=== PATIENT | male | born 1950 | race Caucasian/White ===

== ENCOUNTER 2020-12-06 09:17 | Inpatient (IN) | payer MEDICARE, SELFPAY ==
[2020-12-06] VITALS (42 sets, daily range): BP systolic 104–169; BP diastolic 71–109; PULSE 78–154; RESP 16–31; TEMP 36.2–36.6; O2SAT 91–96; BMI 24.5
--- NOTE | 2020-12-06 | ECHO_ITS ---
Patient Info Name: Braden Liu Age: 70 years : 1950 Gender: Male Ht: 68 in Wt: 160 lbs BSA: 1.87 m2 HR: 89 bpm BP: 129 / 78 mmHg Heart Rhythm: Atrial Fibrillation Technical Quality: Good Exam Date: 12/06/2020 1:48 PM Exam Location: [facility] Pulmonary Exam Room: [facility] Patient Status: Inpatient Admit Date: 12/06/2020 Staff Ordering Physician: Mercedes Weaver PA-C Medical Auditor: Gabby Betancourt RDCS Attending Provider: Letty De La Rosa MD Referring Physician: Owen LOYA; Exam Type: CA echo doppler color flow Study Info Indications - new onset afib Complete two-dimensional, color flow and Doppler transthoracic echocardiogram is performed. Summary 1. Complete two-dimensional, color flow and Doppler transthoracic echocardiogram is performed. 2. Left ventricular chamber dimension is mildly enlarged. 3. Left ventricular systolic function is moderately reduced, estimated at 35-40%. 4. There is mild mitral valve regurgitation. 5. Mild biatrial dilation. Left Ventricle Left ventricular chamber dimension is mildly enlarged. Left ventricular systolic function is moderately reduced, estimated at 35-40%. The left ventricular diastolic function is indeterminate. Right Ventricle Right ventricular chamber dimension is normal. Left Atria Left atrial chamber dimension is mildly enlarged. Right Atria Right atrial chamber dimension is mildly enlarged. Aortic Valve The aortic valve is trileaflet. There is mild aortic valve sclerosis. Pulmonic Valve The pulmonic valve is normal. Mitral Valve The mitral valve has normal leaflets. There is mild mitral valve regurgitation. Tricuspid Valve The tricuspid valve leaflets are normal. Pericardium/Pleural The pericardium appears normal. Aorta The aortic root size at the sinus of Valsalva is normal. Left Ventricular Outflow Tract Name Value Normal LVOT 2D LVOT Diameter 2.0 cm LVOT Doppler LVOT Peak Gradient 5 mmHg LVOT Mean Gradient 3 mmHg LVOT VTI 20 cm LVOT VTI/AV VTI Ratio 0.7 LVOT Stroke Volume 63 ml LVOT CO 15.3 l/min LVOT CI 8.2 l/min/m2 Pulmonic Valve Name Value Normal PV Doppler PV Peak Gradient 2 mmHg Mitral Valve Name Value Normal MV Doppler MV Decel [place] 613 cm/s2 MV PHT 43 ms MV Area (PHT)
--- NOTE | ~2020-12-06 | XR_ITS ---
XR chest 1V portable DATE: 12/06/2020 09:43 INDICATION: Shortness of breath with exertion. Tachycardia. TECHNIQUE: Portable AP chest on 12/06/2020 at 0943 hours COMPARISON: None FINDINGS: Borderline heart size. Aortic tortuosity. Mild infiltrate or atelectasis at the lung bases, right greater than left. The lungs otherwise appear clear. No pleural effusion or pulmonary vascular congestion or pneumothorax. Diffuse osteopenia. Scoliosis and degenerative change of the thoracic spine. IMPRESSION: Borderline heart size Mild infiltrate or atelectasis at the lung bases, greater on the right Reviewed, dictated and finalized at location A.
--- NOTE | ~2020-12-06 | CT_ITS ---
EXAMINATION: CTA chest PE protocol DATE: 12/06/2020 10:37 INDICATION: Postoperative shortness of breath, tachycardia. TECHNIQUE: Computed tomography angiography (CTA) of the chest was performed with 100 mL Omnipaque-350 intravenous contrast timed to evaluate the pulmonary arteries. Coronal maximum intensity projection 3D-reconstructions were created by the technologist. Automated exposure control and iterative reconst ruction technique were employed. Exam dose: 386.12 mGy-cm total exam DLP. COMPARISON: None. FINDINGS: There is diagnostic contrast enhancement of the pulmonary arteries and no evidence of pulmo nary embolism. Normal heart size. No pericardial or pleural effusion. There is thoracic aortic and great vessel atherosclerotic calcification. No thoracic aortic aneurysm. Mild hilar and mediastinal lymph node prominence, likely reactive. Mild bilateral pleural effusions, right greater than left. There are moderate emphysematous changes of the lungs. There is bilateral lower lobe predominantly dependent infiltrate and/or atelectasis. Degenerative changes of the cervical, thoracic and lumbar spine. No suspicious osteolytic or osteobla stic lesions. IMPRESSION: No evidence of pulmonary embolism Bilateral lower lobe predominantly dependent infiltrate and/atelectasis Mild pleural effusions, right greater than left Emphysema Reviewed, dictated and finalized at Location [facility]. Reviewed, dictated and finalized at location A.
--- NOTE | 2020-12-06 09:21 | ECG_ITS ---
Measurements Intervals [place] Rate: 148 P: [place]: 0 QRS: 0 QRSD: 93 T: 68 QT: 288 QTc: 452 Interpretive Statements ATRIAL FIBRILLATION WITH RAPID VENTRICULAR RESPONSE INCOMPLETE RIGHT BUNDLE BRANCH BLOCK ABNORMAL ECG Electronically Signed On 12-06-2020 17:03:13 CDT by Charles Hill D.O.
[2020-12-06] MEDS: dilTIAZem HCl INJ 25 MG/5 ML VIAL 10 MG IV PUSH (09:37)
[2020-12-06 09:42] LABS: Basophils Percent Auto 0.3 % (0.2-1.2); Eosinophils Percent Auto 0.4 % (0-4.4); Hematocrit 42.6 % (42.0-52.0); Hemoglobin 14.4 g/dL (14.0-18.0); Immature Granulocyte Absolute 0.04 K/mm3 (0.00-0.031); Immature Granulocyte Percent A 0.4 % (0-0.5); Lymphocytes Absolute Auto 2.04 K/mm3 (0.9-3.2); Lymphocytes Percent Auto 19.5 % (18.3-44.2); Mean Corpuscular HGB Conc 33.8 g/dl (32-36); Mean Corpuscular Hemoglobin 33.1 pg (26-34); Mean Corpuscular Volume 97.9 fl (80-100); Mean Platelet Volume 10.2 fl (7.4-10.4); Monocytes Percent Auto 9.2 % (2.6-8.5); Neutrophils Absolute Auto 7.4 K/mm3 (1.3-6.7); Neutrophils Percent Auto 70.2 % (45.5-73.1); Platelet Count Result 204 k/mm3 (150-375); Red Blood Count 4.35 M/mm3 (4.6-6.20); Red Cell Distribution Width 12.9 % (11.5-14.5); White Blood Count 10.5 K/mm3 (4.5-10.0)
[2020-12-06 09:49] LABS: INR 1.1; Prothrombin Time 14.3 Seconds (11.1-14.7)
--- NOTE | 2020-12-06 09:49 | ED.SOB ---
HPI - SOB/Dyspnea General Chief Complaint: Shortness of Breath/Dyspnea Stated Complaint: cough/sob/elevated heart rate Time Seen by Provider: 12/06/20 09:21 Source: patient and RN notes reviewed Mode of arrival: ambulatory Limitations: no limitations History of Present Illness HPI Narrative: This is a 70 year old male smoker who presents for evaluation of shortness of breath. HE noticed he was having sob with exertion but denies any at rest. He noticed it particularly when he was cutting the grass. He denies palpitations, chest pain, nausea, vomiting, fever, abdominal pain, or melena. He denies history of an arrhythmia or heart disease. He does state he had a successful left hip replacement 2 months ago and he was anticoagulated after his procedure. He currently takes aspirin 81 mg. Related Data Home Medications Medication Instructions Recorded Confirmed aspirin 81 mg PO DAILY 12/06/20 12/06/20 Allergies Allergy/AdvReac Type Severity Reaction Status Date / Time Sulfa (Sulfonamide Allergy Unknown Verified 12/06/20 09:28 Antibiotics) Review of Systems Review of Systems: All systems reviewed & are unremarkable except as noted in HPI and below PMFSH Past Medical History Medical History (Updated 12/06/20 @ 17:54 by Nel Rossi MD) Osteoarthritis Patient denies medical problems Surgical History Surgical History (Updated 12/06/20 @ 13:35 by Mercedes Weaver PA-C) History of appendectomy History of bilateral hip replacements Family History Family History (Updated 12/06/20 @ 12:55 by Yadira Mansfield, JANAE) Mother Lung cancer Father Lung cancer Sibling Arthritis Mother Arthritis Social History Social History (Updated 12/06/20 @ 13:38 by Mercedes Weaver PA-C) Social History: Pt smokes about 1-2 cigarettes a day and is trying to cut down. He also smokes marijuana occasionally. He does not drugs such as cocaine. He drinks 3-4 beers a day. 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 If he is unable to make decisions for himself, he would like his , Allyn, to make decisions for him. Smoking packs per day: 1 Smoking cigarettes per day: 20.0 Years smoked: 40 Smoking pack-years: 40.00 Smoking status: Current every day smoker Tobacco type: cigarettes Smoking end date: 12/06/20 Alcohol intake: current Drinks per week: 21 Alcohol use details: 3 beers per day. States no history of alcohol withdrawal Substance use: former Substance use type: marijuana Gender identity (if verbalized by the patient): Male Spiritual care concerns: No Exam Const: General: no acute distress and alert Orientation/consciousness: patient oriented x3 Eyes: EOM: EOMs intact bilaterally Resp: Effort & Inspection: normal respiratory effort and no retractions Auscultation: wheezes (expiratory wheezing) Cardio: Rate: tachycardic Rhythm: abnormal rhythm Heart sounds: no murmurs GI: GI Palp: Yes Soft to palpation, No Tenderness to palpation present (GI) and No Guarding due to palpation present (GI) Auscultation: normal bowel sounds Neuro: General: patient oriented x3 and moves all extremities Extrem: General: no pedal edema Course Consultations Consultation #1: I Discussed with Dr. De La Rosa about patient with new onset afib. He accepts patient to service with cardiology consultation Date: 12/06/20 Time: 11:16 Consultation #2: I discussed case with Dr. Dasilva. He agrees to consult. Date: 12/06/20 Time: 11:23 Vital Signs Vital signs: Vital Signs Temperature 97.2 F L 12/06/20 09:22 Pulse Rate 149 H 12/06/20 09:22 Respiratory Rate 18 12/06/20 09:22 Blood Pressure 169/106 H 12/06/20 09:22 Pulse Oximetry 96 12/06/20 09:22 Temperature 97.4 F L 12/06/20 16:00 Pulse Rate 86 12/06/20 16:00 Respiratory Rate 18 12/06/20 16:00 Blood Pressure 104/71 12/06/20 16:00 Pulse Oximetry 91 12/06/20 1
[2020-12-06 09:50] LABS: Partial Thromboplastin Time 27.5 SECONDS (22.3-36.8)
[2020-12-06 09:55] LABS: Alanine Aminotransferase 21 U/L (4-50); Albumin Level 4.4 g/dL (3.5-5.1); Alkaline Phosphatase 92 U/L (38-126); Anion Gap 8 mmol/L (8-16); Aspartate Amino Transferase 26 U/L (17-59); Bilirubin,Total 0.9 mg/dL (0.2-1.3); Blood Urea Nitrogen 10 mg/dL (9-20); Calcium 9.4 mg/dL (8.4-10.2); Carbon Dioxide 27 mmol/L (22-30); Chloride 101 mmol/L (98-107); Estimated CRCL calculation 53 ml/min; Estimated Glomerular Filt Rate > 60; Glucose 116 mg/dL (75-110); Magnesium 1.8 mg/dL (1.6-2.3); Potassium 4.1 mmol/L (3.4-5.0); Sodium 136 mmol/L (137-145)
[2020-12-06] MEDS: dilTIAZem HCl INJ 25 MG/5 ML VIAL 20 MG IV PUSH (10:02)
[2020-12-06 10:07] LABS: NT Pro B Type Natriuretic Pept 4600 pg/mL (5-100); Troponin I < 0.012 ng/mL (0.000-0.034)
[2020-12-06] MEDS: ENOXAPARIN 80 MG/0.8 ML SYRINGE 72 MG SUB-Q (10:12)
--- NOTE | 2020-12-06 10:26 | PC.NURSE ---
Pt to CT.
--- NOTE | 2020-12-06 12:26 | PM.IMHP ---
H&P: HPI History of Present Illness Date/Time: 12/06/20 12:26 Chief Complaint: FRANZ Narrative: Pt is a 70 y/o male with no significant past medical history who presented to the ER for dyspnea on exertion and orthopnea. Pt states that in the last 3 days he started feeling 'weird' and was SOB whiling moving and laying flat. He usually sleeps on his stomach but he is unable to do so due to SOB in the last 3 days. He says the SOB with worse exertion and improves with sitting. He has not had any CP or palpitations. He has no hx of afib, heart failure, or cardiac disease. He has never had a stress test or cardiac cath. He drinks about 2 cups of coffee a ay and 3-4 beers a day. He has been cutting down on his smoking which is making him cough more. He has no symptoms of congestion, wheezing, or other upper respiratory infection. He has completed his COVID vaccine in sep. He denies leg swelling, fevers, chills, vomiting, dysuria, rashes, wounds, or fevers. He has never had a hx of stroke. he does admit to a decreased appetite. In october he had an elective left total hip which healed well. He sees his PCP routinely. Review of Systems Review of Systems: All systems reviewed & are unremarkable except as noted in HPI and below PMFSH Past Medical History Medical History (Updated 12/06/20 @ 13:35 by Mercedes Weaver PA-C) Osteoarthritis Patient denies medical problems Surgical History Surgical History (Updated 12/06/20 @ 13:35 by Mercedes Weaver PA-C) History of appendectomy History of bilateral hip replacements Family History Family History (Updated 12/06/20 @ 12:55 by Yadira Mansfield RN) Mother Lung cancer Father Lung cancer Sibling Arthritis Mother Arthritis Social History Social History (Updated 12/06/20 @ 13:38 by Mercedes Weaver PA-C) Social History: Pt smokes about 1-2 cigarettes a day and is trying to cut down. He also smokes marijuana occasionally. He does not drugs such as cocaine. He drinks 3-4 beers a day. 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 If he is unable to make decisions for himself, he would like his , Allyn, to make decisions for him. Smoking packs per day: 1 Smoking cigarettes per day: 20.0 Years smoked: 40 Smoking pack-years: 40.00 Smoking status: Current every day smoker Tobacco type: cigarettes Smoking end date: 12/06/20 Alcohol intake: current Drinks per week: 21 Alcohol use details: 3 beers per day. States no history of alcohol withdrawal Substance use: former Substance use type: marijuana Gender identity (if verbalized by the patient): Male Spiritual care concerns: No Meds Home Medications and Allergies Home Medications Medication Instructions Recorded Confirmed Type aspirin 81 mg PO DAILY 12/06/20 12/06/20 History Allergies Allergy/AdvReac Type Severity Reaction Status Date / Time Sulfa (Sulfonamide Allergy Unknown Verified 12/06/20 09:28 Antibiotics) Vital Signs Vital Signs - 24 hr 12/06/20 09:22 12/06/20 09:24 12/06/20 09:25 Temperature 97.2 F L Pulse Rate 149 H 142 H 147 H Respiratory Rate 18 31 H 25 H Blood Pressure 169/106 H Pulse Oximetry 96 95 96 12/06/20 09:30 12/06/20 09:31 12/06/20 09:45 Temperature Pulse Rate 154 H 139 H 130 H Respiratory Rate 21 H 24 H 18 Blood Pressure 154/101 H Pulse Oximetry 94 94 94 12/06/20 09:48 12/06/20 09:59 12/06/20 10:00 Temperature Pulse Rate 107 H 132 H Respiratory Rate 19 19 Blood Pressure 140/96 H Pulse Oximetry 96 93 94 12/06/20 10:01 12/06/20 10:02 12/06/20 10:15 Temperature Pulse Rate 123 H 100 116 H Respiratory Rate 20 20 20 Blood Pressure 148/109 H Pulse Oximetry 94 94 12/06/20 10:17 12/06/20 10:18 12/06/20 10:26 Temperature Pulse Rate 110 H 101 H 89 Respiratory Rate 20 20 Blood Pressure 114/93 H Pulse Oximetry 94 94 12/06/20 10:51 12/06/20 11:00
[2020-12-06 13:24] LABS: Troponin I < 0.012 ng/mL (0.000-0.034)
--- NOTE | 2020-12-06 13:33 | PC.NURSE ---
This patient, Braden Liu, was admitted to IMU Room 202-01. Patient/family oriented to hospital policies and general routines including ID bracelet, bed and alarms, visiting hours, pain management, procedures, bathroom and other care routines, personal items, smoking policy, room service/diet, and visiting hours. Information on how to activate the Rapid Response Team has been discussed. Patient/Family are encouraged to report perceived risks to care and to ask questions if they do not understand what they are told or what they should do.
[2020-12-06] MEDS: FUROSEMIDE INJ 40 MG/4 ML VIAL 20 MG IV PUSH (14:45)
[2020-12-06 16:32] LABS: Troponin I 0.014 ng/mL (0.000-0.034)
[2020-12-06] MEDS: ENOXAPARIN 80 MG/0.8 ML SYRINGE 75 MG SUB-Q (21:32)
[2020-12-06] MEDS: MELATONIN 5 MG TABLET PO (21:32)
[2020-12-06] MEDS: NICOTINE (*PBKC) 14 MG PATCH 1 PATCH TRANSDERM (21:57)
[2020-12-07] VITALS (18 sets, daily range): BP systolic 110–159; BP diastolic 66–89; PULSE 62–100; RESP 12–18; TEMP 36.2–36.9; O2SAT 91–100
[2020-12-07 04:42] LABS: Basophils Percent Auto 0.6 % (0.2-1.2); Eosinophils Percent Auto 0.6 % (0-4.4); Hematocrit 39.2 % (42.0-52.0); Hemoglobin 12.9 g/dL (14.0-18.0); Immature Granulocyte Absolute 0.02 K/mm3 (0.00-0.031); Immature Granulocyte Percent A 0.3 % (0-0.5); Lymphocytes Absolute Auto 1.31 K/mm3 (0.9-3.2); Lymphocytes Percent Auto 20.6 % (18.3-44.2); Mean Corpuscular HGB Conc 32.9 g/dl (32-36); Mean Corpuscular Hemoglobin 33.4 pg (26-34); Mean Corpuscular Volume 101.6 fl (80-100); Mean Platelet Volume 10.2 fl (7.4-10.4); Monocytes Absolute Auto 0.8 K/mm3 (0.1-0.6); Monocytes Percent Auto 12.2 % (2.6-8.5); Neutrophils Absolute Auto 4.2 K/mm3 (1.3-6.7); Neutrophils Percent Auto 65.7 % (45.5-73.1); Platelet Count Result 172 k/mm3 (150-375); Red Blood Count 3.86 M/mm3 (4.6-6.20); Red Cell Distribution Width 13.2 % (11.5-14.5); White Blood Count 6.4 K/mm3 (4.5-10.0)
[2020-12-07 04:58] LABS: Anion Gap 6 mmol/L (8-16); Blood Urea Nitrogen 13 mg/dL (9-20); Calcium 9.1 mg/dL (8.4-10.2); Carbon Dioxide 28 mmol/L (22-30); Chloride 103 mmol/L (98-107); Cholesterol 117 mg/dL (0-200); Estimated CRCL calculation 49 ml/min; Estimated Glomerular Filt Rate 60; Glucose 104 mg/dL (75-110); HDL Direct 25 mg/dL; Potassium 4.2 mmol/L (3.4-5.0); Sodium 137 mmol/L (137-145); Triglycerides 79 mg/dL (<150)
[2020-12-07 05:09] LABS: LDL Cholesterol Direct 82 mg/dL
[2020-12-07] MEDS: ASPIRIN 81 MG CHEWABLE TABLET PO (09:06)
[2020-12-07] MEDS: ENOXAPARIN 80 MG/0.8 ML SYRINGE 75 MG SUB-Q (09:07)
[2020-12-07] MEDS: FUROSEMIDE INJ 40 MG/4 ML VIAL 20 MG IV PUSH (09:07)
--- NOTE | 2020-12-07 14:12 | PM.CNCAR ---
Assessment and Plan Additional Plan 70-year-old man with chronic cigarette smoking presents with symptomatic atrial fibrillation. Sounds like symptoms began about 48 hours prior to presentation. He is now rate controlled and anticoagulated he appears to be hemodynamically stable. Echocardiogram does demonstrate some evidence of LV systolic dysfunction this could possibly certainly be due to the fact that the study is done during rapid atrial fibrillation. In any event I believe it is reasonable to attempt converting him to sinus rhythm since his atrial fib was not longstanding and he has fairly good story of symptoms fairly acute a short time before coming to the hospital. Along those lines I am going to transition him from IV diltiazem to oral sotalol at this time and transition his anticoagulant to up oral apixaban. He remembers being on apixaban following his hip replacement surgery and had no troubles the with the anticoagulant at that time. Hopefully sotalol will convert him to sinus rhythm if not I will attempt a electrical cardioversion while he is in the hospital. I do not anticipate discharging him in atrial fibrillation Yony Dasilva MD [facility] History of Present Illness History of Present Illness Consult date/time: 12/07/20 14:12 Consult reason: atrial fibrillation Reason For Visit: atrial fibrillation with RVR/ new onset Narrative: This is a pleasant 70-year-old man I am seeing at the request of the hospitalist for assistance with the management and evaluation of atrial fibrillation. The patient has no history of prior cardiac problems that he knows about prior to this. He came to the emergency room yesterday because for a couple of days he said he felt somewhat poorly. He was concerned about symptoms of both some shortness of breath as well as the sense of tachycardia and palpitations. This began he thinks about 2 days before he came to the hospital. In the emergency room it was recognized that he was tachycardic and electrocardiogram demonstrated atrial fib with rapid ventricular response. Other than this he was essentially asymptomatic and in no significant distress. His past medical history is primarily remarkable for longstanding cigarette smoking which he is trying to quit. He does not have any history of asthma or bronchospasm. He denies any symptoms of chest pain pressure or heaviness he has not been experiencing any orthopnea PND or edema. An echocardiogram was done upon admission yesterday that did demonstrate mild left ventricular systolic dysfunction and some atrial dilatation. In this setting he is being seen in consultation. In the emergency room he was of course started on intravenous diltiazem which is still running at 10 milligrams/hour. He was the anticoagulated with subcutaneous Lovenox 1 milligram/kilogram every 12 hours. 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 He has had bilateral hip replacement surgery done in the past no other major surgical operations. Review of Systems Constitutional: Constitutional: Reports no additional constitutional complaints Eyes: Eyes: Reports no additional eye complaints ENT: Reports system reviewed and no additional complaints, except as documented Cardiovascular: Cardiovascular: Reports palpitations Respiratory: Respiratory: Reports dyspnea Gastrointestinal: Gastrointestinal: Reports no additional gastrointestinal complaints Musculoskeletal: Musculoskeletal: Reports no additional musculoskeletal complaints Integumentary/Breasts: Skin/Breast: Reports system reviewed and no additional complaints, except as docu Neurologic: Reports system reviewed and no additional complaints, except as documented Endocrine: Endocrine: Reports no additional endocrine complaints Hematologic/Lymphatic: Hematologic/Lymphatic: Reports no additional hematologic/lymphatic complaints Allergic/Immunologic: Allergic/Immunologic: Reports n
--- NOTE | 2020-12-07 14:25 | PM.IMPN ---
Progress Note: A&P Assessment and Plan (1) Atrial fibrillation with RVR: Code(s): I48.91 - Unspecified atrial fibrillation Status: Acute Assessment and Plan: New onset afib noted on EKG -[id number] is 2, Eliquis was started -sotalol started by Cardiology -Pt started feeling unwell 3 days ago which may indicate this is when his afib started but he also had sx about a month ago which could have could be a factor as well. No afib in the past. Will monitor neurological symptoms while establishing rhythm control. (2) Acute systolic heart failure: Code(s): I50.21 - Acute systolic (congestive) heart failure Status: Acute Assessment and Plan: Echo reveals an EF 35-40% in a patient is a smoker -he is not having any chest pain -will give another dose of IV Lasix and see if that improves his shortness of breath. I will also add inhaler since he has COPD -consider adding PAUL/Arb -continue aspirin -consider outpatient stress testing/ischemic workup (3) Elevated brain natriuretic peptide (BNP) level: Code(s): R79.89 - Other specified abnormal findings of blood chemistry Status: Acute Assessment and Plan: BNP 4600 -CTA of the chest showed mild pleural effusions -EKG shows no ST abnormalities but does show new onset afib. -echo as above -trop negative x3. -He was given lasix today and yesterday for pleural effusion and SOB (4) Tobacco dependence: Code(s): F17.200 - Nicotine dependence, unspecified, uncomplicated Status: Acute Assessment and Plan: Pt understands he needs to quit smoking -nicotine patch ordered Time Spent With Patient Time with patient: 25 - 35 minutes Subjective Date/time seen: 12/07/20 14:25 Interval history: Pt is a 70-year-old male here for AFib RVR. Patient was seen today and states he is feeling better but he still feeling short of breath that has improved a bit. He has not had any chest pain, nausea, vomiting, fevers or chills, abdominal pain, diarrhea or constipation. Review of Systems Review of Systems: All systems reviewed & are unremarkable except as noted in HPI and below Exam Narrative: Exam Narrative: General:Well developed well nourished patient resting in bed in NAD HEENT: Normocephalic, atraumatic, PERRL, Sclerae anicteric, oral mucosa moist. Neck: Supple Resp: Mild crackles at the bases Heart: Irregularly irregular with no murmurs. tele showing rate controlled afib. Abd: Soft, nontender. No pain to palpation. Positive bowel sounds Skin: Warm and dry Extremities: No swelling, erythema or pain to palpation Neuro: Alert and Oriented x4 . CN 2-12 intact. No focal neurological deficits. Objective Data Vital Signs Vital Signs: Vital Signs - 24 hr 12/06/20 16:00 12/06/20 18:00 12/06/20 19:03 Temperature 97.4 F L Pulse Rate 88 84 93 Pulse Rate [Monitor] 86 Respiratory Rate 18 Blood Pressure 104/71 Pulse Oximetry 91 12/06/20 19:47 12/06/20 20:00 12/06/20 20:06 Temperature 97.8 F Pulse Rate 93 93 83 Pulse Rate [Monitor] 84 Respiratory Rate 16 16 Blood Pressure 106/71 106/71 106/71 Pulse Oximetry 94 94 12/06/20 22:00 12/07/20 00:00 12/07/20 02:00 Temperature 97.1 F L Pulse Rate 89 78 66 Pulse Rate [Monitor] 69 Respiratory Rate 16 Blood Pressure 110/71 Pulse Oximetry 91 12/07/20 04:00 12/07/20 05:09 12/07/20 05:57 Temperature 97.1 F L Pulse Rate 81 81 73 Pulse Rate [Monitor] 81 Respiratory Rate 16 Blood Pressure 124/66 124/66 Pulse Oximetry 94 12/07/20 08:00 12/07/20 10:00 12/07/20 12:00 Temperature 98.4 F 98 F Pulse Rate 88 73 79 Pulse Rate [Monitor] 62 79 Respiratory Rate 18 12 Blood Pressure 120/83 125/75 Pulse Oximetry 91 94 Intake/Output Intake/Output: Intake & Output 12/04/20 12/05/20 12/06/20 12/07/20 23:59 23:59 23:59 23:59 Intake Total 420 890 Output Total 850 300 Balance -430 590 Meds/Resul
[2020-12-07] MEDS: SOTALOL HCL 80 MG TABLET PO ×2 (14:49→20:45)
[2020-12-07] MEDS: NICOTINE (*PBKC) 14 MG PATCH 1 PATCH TRANSDERM (14:50)
--- NOTE | 2020-12-07 16:45 | ECG_ITS ---
Measurements Intervals [place] Rate: 79 P: [place]: 0 QRS: 149 QRSD: 99 T: 79 QT: 420 QTc: 482 Interpretive Statements ATRIAL FIBRILLATION INCOMPLETE RIGHT BUNDLE BRANCH BLOCK BASELINE ARTIFACT- I, II, III, AVR, AVL ABNORMAL ECG Electronically Signed On 12-07-2020 19:22:55 CDT by Charles Hill D.O.
[2020-12-07] MEDS: FUROSEMIDE INJ 40 MG/4 ML VIAL IV PUSH (18:33)
[2020-12-07] MEDS: THIAMINE HCL 100 MG TABLET PO (19:05)
[2020-12-07] MEDS: APIXABAN 5 MG TABLET PO (20:45)
[2020-12-07] MEDS: MELATONIN 5 MG TABLET PO (20:46)
[2020-12-08] VITALS (26 sets, daily range): BP systolic 115–152; BP diastolic 70–113; PULSE 62–114; RESP 14–25; TEMP 36.3–36.7; O2SAT 93–100
--- NOTE | 2020-12-08 01:19 | ECG_ITS ---
Measurements Intervals [place] Rate: 99 P: [place]: 0 QRS: -3 QRSD: 100 T: 35 QT: 384 QTc: 494 Interpretive Statements ATRIAL FIBRILLATION INCOMPLETE RIGHT BUNDLE BRANCH BLOCK DELAYED PRECORDIAL R/S TRANSITION ABNORMAL ECG Electronically Signed On 12-08-2020 9:12:25 CDT by Charles Hill D.O.
[2020-12-08] MEDS: FAMOTIDINE 20 MG/2 ML VIAL IV PUSH (02:04)
[2020-12-08 04:58] LABS: Hematocrit 40.4 % (42.0-52.0); Hemoglobin 13.2 g/dL (14.0-18.0); Mean Corpuscular HGB Conc 32.7 g/dl (32-36); Mean Corpuscular Hemoglobin 33.4 pg (26-34); Mean Corpuscular Volume 102.3 fl (80-100); Platelet Count Result 182 k/mm3 (150-375); Red Blood Count 3.95 M/mm3 (4.6-6.20); Red Cell Distribution Width 13.2 % (11.5-14.5); White Blood Count 6.7 K/mm3 (4.5-10.0)
[2020-12-08 05:59] LABS: Alanine Aminotransferase 16 U/L (4-50); Albumin Level 3.7 g/dL (3.5-5.1); Alkaline Phosphatase 72 U/L (38-126); Anion Gap 5 mmol/L (8-16); Aspartate Amino Transferase 21 U/L (17-59); Bilirubin,Total 0.8 mg/dL (0.2-1.3); Blood Urea Nitrogen 16 mg/dL (9-20); Calcium 9.2 mg/dL (8.4-10.2); Carbon Dioxide 30 mmol/L (22-30); Chloride 101 mmol/L (98-107); Estimated CRCL calculation 37 ml/min; Estimated Glomerular Filt Rate 43; Glucose 126 mg/dL (75-110); Magnesium 1.9 mg/dL (1.6-2.3); Potassium 3.8 mmol/L (3.4-5.0); Sodium 136 mmol/L (137-145)
[2020-12-08 07:56] LABS: Folic Acid > 20.0 ng/mL (2.76->20)
--- NOTE | 2020-12-08 08:16 | ECG_ITS ---
Measurements Intervals [place] Rate: 75 P: [place]: 0 QRS: -11 QRSD: 113 T: 48 QT: 455 QTc: 511 Interpretive Statements ATRIAL FIBRILLATION INCOMPLETE RIGHT BUNDLE BRANCH BLOCK PROLONGED QT INTERVAL ABNORMAL ECG Electronically Signed On 12-08-2020 10:31:08 CDT by Charles Hill D.O.
--- NOTE | 2020-12-08 08:51 | PM.PNCARD ---
Progress Note: A&P Additional Plan 70-year-old man with new onset atrial fibrillation. Heart rate this morning is well controlled but he is complaining of nausea which probably is related to an antiarrhythmic agent which was started over the weekend. I am going to stop the sotalol for that reason and proceed with an electrical cardioversion this morning. Alternative antiarrhythmic will be chosen after this. Continue anticoagulation with apixaban. Yony Dasilva MD [facility] Subjective Date/time seen: Date of service: 12/08/20 08:51 Interval history: Follow-up visit in this 70-year-old man with: Atrial fibrillation of new onset. He has been treated with sotalol and apixaban and is stable this morning but is complaining of nausea and dry heaves. Heart rate is well controlled patient's nausea is likely secondary to his antiarrhythmic. Discussed with the patient I will adjust his plan and consider/plan DC cardioversion this morning and discontinue sotalol. Will choose another antiarrhythmic based on results of his cardioversion. Exam Const: General: no acute distress and uncomfortable Other: No obvious distress reporting that he is nauseated as mentioned above HENMT: Mouth: Yes moist mucous membranes Eyes: Sclera: sclerae normal Pupils: Equal, round and reactive pupils present Neck: Neck: supple and no JVD Thyroid: thyroid normal Resp: Effort & Inspection: normal respiratory effort Auscultation: clear to auscultation bilaterally Cardio: Rhythm: abnormal rhythm irregularly irregular GI: GI Palp: Yes Soft to palpation Auscultation: normal bowel sounds Skin: General skin exam: normal color Neuro: Cognition (Neuro): normal cognition Extrem: General: normal to inspection Objective Data Vital Signs Vital Signs: Vital Signs - 24 hr 12/07/20 09:00 12/07/20 10:00 12/07/20 12:00 Temperature 36.6 C Pulse Rate 69 73 79 Pulse Rate [Monitor] 79 Respiratory Rate 16 12 Blood Pressure 125/75 Pulse Oximetry 94 94 12/07/20 14:00 12/07/20 14:49 12/07/20 15:13 Temperature Pulse Rate 72 85 96 Pulse Rate [Monitor] Respiratory Rate Blood Pressure Pulse Oximetry 12/07/20 16:00 12/07/20 18:00 12/07/20 20:00 Temperature 36.4 C 36.3 C L Pulse Rate 79 88 89 Pulse Rate [Monitor] 80 Respiratory Rate 12 16 Blood Pressure 122/81 159/68 H Pulse Oximetry 94 100 12/07/20 20:45 12/07/20 22:00 12/07/20 23:51 Temperature 36.3 C L Pulse Rate 80 100 85 Pulse Rate [Monitor] Respiratory Rate 16 Blood Pressure 126/89 Pulse Oximetry 95 12/08/20 00:00 12/08/20 02:00 12/08/20 04:00 Temperature 36.3 C L Pulse Rate 93 86 85 Pulse Rate [Monitor] Respiratory Rate 16 Blood Pressure 126/89 Pulse Oximetry 95 12/08/20 06:00 12/08/20 07:50 12/08/20 08:09 Temperature 36.5 C Pulse Rate 91 86 Pulse Rate [Monitor] 87 Respiratory Rate 18 Blood Pressure 140/101 H 136/95 H Pulse Oximetry 94 Intake/Output Intake/Output: Intake & Output 12/05/20 12/06/20 12/07/20 12/08/20 23:59 23:59 23:59 23:59 Intake Total 420 1650 550 Output Total 850 500 600 Balance -430 1150 -50 Meds/Results Medications: Active Medications Generic Name Dose Route Start Last Admin Trade Name Freq PRN Reason Stop Dose Admin Apixaban 5 mg 12/07/20 21:00 12/07/20 20:45 Apixaban 5 Mg Tablet PO 5 mg Q12HR ELADIO Administration Aspirin 81 mg 12/07/20 09:00 12/07/20 09:06 Aspirin 81 Mg Chewable Tablet PO 01/06/21 09:01 81 mg DAILY ELADIO Administration Folic Acid 1 mg 12/08/20 09:00 Folic Acid 1 Mg Tablet PO DAILY ELADIO Levalbuterol HCl 2 puff 12/07/20 08:29 Levalbuterol Hfa (*Sp) 15 Gm Inhaler INHALATION Q6HRT PRN Shortness Of Breath Melatonin 5 mg 12/07/20 21:00 12/07/20 20:46 Melatonin 5 Mg Tablet PO 5 mg HS ELADIO Administration Prochlorperazine Edisylate 10 mg 12/08/20 08:30 Prochlorperazine Edisylate 10 Mg/
[2020-12-08] MEDS: APIXABAN 5 MG TABLET PO ×2 (09:36→20:05)
--- NOTE | 2020-12-08 10:49 | PC.NURSE ---
Patient to chest pain center @10[address] Dasilva. Patient has RNs at bedside.
--- NOTE | 2020-12-08 11:06 | WPDMODSED ---
Moderate Sedation Note-Pt Data Patient Data Diagnosis: Atrial fibrillation of new onset Present Complaint: palpitations and dyspnea Procedure to be performed/Plan: DC cardioversion Allergies Allergy/AdvReac Type Severity Reaction Status Date / Time Sulfa (Sulfonamide Allergy Unknown Verified 12/06/20 09:28 Antibiotics) Home Medications Medication Instructions Recorded Confirmed Type aspirin 81 mg PO DAILY 12/06/20 12/06/20 History Current Medications: Active Medications Apixaban (Apixaban 5 Mg Tablet) 5 mg PO Q12HR [facility] Last Admin: 12/08/20 09:36 Dose: 5 mg Documented by: Aspirin (Aspirin 81 Mg Chewable Tablet) 81 mg PO DAILY [facility] Stop: 01/06/21 09:01 Last Admin: 12/07/20 09:06 Dose: 81 mg Documented by: Folic Acid (Folic Acid 1 Mg Tablet) 1 mg PO DAILY [facility] Levalbuterol HCl (Levalbuterol Hfa (*Sp) 15 Gm Inhaler) 2 puff INHALATION Q6HRT PRN PRN Reason: Shortness Of Breath Melatonin (Melatonin 5 Mg Tablet) 5 mg PO HS [facility] Last Admin: 12/07/20 20:46 Dose: 5 mg Documented by: Prochlorperazine Edisylate (Prochlorperazine Edisylate 10 Mg/2 Ml Vial) 10 mg IV PUSH Q6H PRN PRN Reason: Nausea And Vomiting Thiamine HCl (Thiamine Hcl 100 Mg Tablet) 100 mg PO QAM [facility] Last Admin: 12/07/20 19:05 Dose: 100 mg Documented by: Sedation/Anesthesia: No previous sedation/anesthesia problems (including family history). [facility] Past Medical History Medical History (Updated 12/07/20 @ 14:25 by Mercedes Weaver PA-C) Osteoarthritis Patient denies medical problems Surgical History Surgical History (Updated 12/06/20 @ 13:35 by Mercedes Weaver PA-C) History of appendectomy History of bilateral hip replacements Family History Family History (Updated 12/06/20 @ 12:55 by Yadira Mansfield RN) Mother Lung cancer Father Lung cancer Sibling Arthritis Mother Arthritis Social History Social History (Updated 12/06/20 @ 13:38 by Mercedes Weaver PA-C) Social History: Pt smokes about 1-2 cigarettes a day and is trying to cut down. He also smokes marijuana occasionally. He does not drugs such as cocaine. He drinks 3-4 beers a day. 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 If he is unable to make decisions for himself, he would like his , Allyn, to make decisions for him. Smoking packs per day: 1 Smoking cigarettes per day: 20.0 Years smoked: 40 Smoking pack-years: 40.00 Smoking status: Current every day smoker Tobacco type: cigarettes Smoking end date: 12/06/20 Alcohol intake: current Drinks per week: 21 Alcohol use details: 3 beers per day. States no history of alcohol withdrawal Substance use: former Substance use type: marijuana Gender identity (if verbalized by the patient): Male Spiritual care concerns: No Mod Sed Physical Exam Physical Exam Pre Procedural Exam: Normal: Appearance, Nose, Neck, Throat, Airway, Lungs, Heart Size, Heart Rate, Neuro Exam and Extremities and Variation: Heart Rhythm ( irregularly irregular) Hours since solid foods: 12 Hours since liquid intake: 12 Internal Medicine - PN: Myrtle Davenport Vital Signs Vital Signs: Vital Signs - 24 hr 12/07/20 12:00 12/07/20 14:00 12/07/20 14:49 Temperature 36.6 C Pulse Rate 79 72 85 Pulse Rate [Monitor] 79 Respiratory Rate 12 Blood Pressure 125/75 Pulse Oximetry 94 12/07/20 15:13 12/07/20 16:00 12/07/20 18:00 Temperature 36.4 C Pulse Rate 96 79 88 Pulse Rate [Monitor] 80 Respiratory Rate 12 Blood Pressure 122/81 Pulse Oximetry 94 12/07/20 20:00 12/07/20 20:45 12/07/20 22:00 Temperature 36.3 C L Pulse Rate 89 80 100 Pulse Rate [Monitor] Respiratory Rate 16 Blood Pressure 159/68 H Pulse Oximetry 100 12/07/20 23:51 12/08/20 00:00 12/08/20 02:00 Temperature 36.3 C L Pulse Rate 85 93 86 Pulse Rate [Monitor] Respiratory Rate 16 Blood Pressure 126/89 Pulse Oximetry 95 12/08/20
--- NOTE | 2020-12-08 11:13 | ECG_ITS ---
Measurements Intervals [place] Rate: 105 P: [place]: 0 QRS: 0 QRSD: 98 T: 32 QT: 398 QTc: 526 Interpretive Statements ATRIAL FIBRILLATION WITH RAPID VENTRICULAR RESPONSE ABNORMAL ECG Electronically Signed On 12-08-2020 14:29:25 CDT by Charles Hill D.O.
--- NOTE | 2020-12-08 11:14 | P.PCNCC_ITS ---
Cardiac Cath Procedure Note Date of procedure:: 12/08/20 Performing physician:: Yony Dasilva MD Indication:: New onset/persistent atrial fibrillation Brief clinical history:: This is a 70-year-old man who presented over the weekend with atrial fibrillation which by history appears to be of new onset. He has been treated with sotalol and apixaban. He is experiencing some nausea but otherwise appears to be stable. Attempt at restoring sinus rhythm electrically is now being attempted Procedure Procedure performed:: DC cardioversion Sedation/Medication given:: Propofol in aliquots total dosage of 70 mg Estimated blood loss:: No blood loss Procedure note:: Patient was brought to the cardiac catheterization lab holding area in the postabsorptive state. He was in the supine position with defibrillator patches placed in the AP position. He was then sedated with propofol. A total dosage of 70 mg was given in aliquots which provided excellent procedural sedation. He was counter shocked with 200 joules in a synchronized fashion x1 which restored sinus rhythm. Findings:: As above Conclusion:: Successful uncomplicated DC cardioversion of atrial fib restoring sinus rhythm using 200 joules x1 shock. Yony Dasilva MD [facility]
--- NOTE | 2020-12-08 11:45 | PM.IMPN ---
Progress Note: A&P Assessment and Plan (1) Atrial fibrillation with RVR: Code(s): I48.91 - Unspecified atrial fibrillation Status: Acute Assessment and Plan: New onset afib noted on EKG -[id number] is 2, Eliquis was started -patient was cardioverted but went right back and atrial fibrillation -plan for metoprolol and flecainide according to Cardiology tonight -continue to monitor in the IMU (2) Acute systolic heart failure: Code(s): I50.21 - Acute systolic (congestive) heart failure Status: Acute Assessment and Plan: Echo reveals an EF 35-40% in a patient is a smoker -he is not having any chest pain -he was given IV Lasix yesterday morning and again in the afternoon which improved his orthopnea and dyspnea on exertion but now his creatinine is elevated. -consider adding PAUL/Arb -continue aspirin -consider outpatient stress testing/ischemic workup -will hold off on further Lasix at this time. Monitor symptoms. Patient be a candidate for p.r.n. Lasix outpatient if needed (3) Elevated brain natriuretic peptide (BNP) level: Code(s): R79.89 - Other specified abnormal findings of blood chemistry Status: Acute Assessment and Plan: BNP 4600 -CTA of the chest showed mild pleural effusions -EKG shows no ST abnormalities but does show new onset afib. -echo as above -trop negative x3. (4) Tobacco dependence: Code(s): F17.200 - Nicotine dependence, unspecified, uncomplicated Status: Acute Assessment and Plan: Pt understands he needs to quit smoking -nicotine patch ordered (5) Elevated serum creatinine: Code(s): R79.89 - Other specified abnormal findings of blood chemistry Status: Acute Assessment and Plan: Cr increased to 1.6 today after 60mg of IV lasix total yesterday -monitor with daily labs -hold off on lasix for today as the pts symptoms are better. Additional Plan Patient is being admitted under observation status and supervising physician is Dr. Blaise Bernabe Time Spent With Patient Time with patient: 25 - 35 minutes Subjective Date/time seen: 12/08/20 11:45 Interval history: Pt is a 70-year-old male here for new onset AFib. Patient was seen today prior to his procedure and states he is doing okay. He had significant nausea overnight which prevented him from sleeping. He thinks the sotalol may have caused it since he has taken Eliquis in the past and did not have the issue with that. He has not had any palpitations, chest pain or weakness/numbness. He said his dyspnea on exertion and orthopnea has resolved and he is feeling much better than he has in a while. I spoke with him about the plan of care. He denies diarrhea, constipation, vomiting, fevers or chills. Review of Systems Review of Systems: All systems reviewed & are unremarkable except as noted in HPI and below Exam Narrative: Exam Narrative: General:Well developed well nourished patient resting in bed in NAD HEENT: Normocephalic, atraumatic, PERRL, Sclerae anicteric, oral mucosa moist. Neck: Supple Resp: Mild crackles at the bases Heart: Irregularly irregular with no murmurs. tele showing rate controlled afib. Abd: Soft, nontender. No pain to palpation. Positive bowel sounds Skin: Warm and dry Extremities: No swelling, erythema or pain to palpation Neuro: Alert and Oriented x4 . CN 2-12 intact. No focal neurological deficits. Objective Data Vital Signs Vital Signs: Vital Signs - 24 hr 12/07/20 12:00 12/07/20 14:00 12/07/20 14:49 Temperature 98 F Pulse Rate 79 72 85 Pulse Rate [Monitor] 79 Respiratory Rate 12 Blood Pressure 125/75 Pulse Oximetry 94 12/07/20 15:13 12/07/20 16:00 12/07/20 18:00 Temperature 97.6 F Pulse Rate 96 79 88 Pulse Rate [Monitor] 80 Respiratory Rate 12 Blood Pressure 122/81 Pulse Oximetry 94 12/07/20 20:00 12/07/20 20:45 12/07/20 22:00 Temperature 97.4 F L
[2020-12-08] MEDS: FLECAINIDE ACETATE 100 MG TABLET PO ×2 (12:15→20:05)
[2020-12-08] MEDS: FOLIC ACID 1 MG TABLET PO (12:15)
[2020-12-08] MEDS: THIAMINE HCL 100 MG TABLET PO (12:15)
[2020-12-08] MEDS: METOPROLOL TARTRATE 50 MG TAB PO ×2 (12:16→20:05)
[2020-12-08] MEDS: ASPIRIN 81 MG CHEWABLE TABLET PO (13:42)
[2020-12-08] MEDS: ALPRAZolam (*CRX) 0.125 MG TABLET PO (20:04)
[2020-12-08] MEDS: MELATONIN 5 MG TABLET PO (20:05)
[2020-12-09] VITALS (18 sets, daily range): BP systolic 112–144; BP diastolic 72–98; PULSE 57–88; RESP 12–18; TEMP 36.1–36.6; O2SAT 94–98
[2020-12-09 06:31] LABS: Hematocrit 41.8 % (42.0-52.0); Hemoglobin 13.8 g/dL (14.0-18.0); Mean Corpuscular Hemoglobin 33.8 pg (26-34); Mean Corpuscular Volume 102.5 fl (80-100); Mean Platelet Volume 10.1 fl (7.4-10.4); Platelet Count Result 179 k/mm3 (150-375); Red Blood Count 4.08 M/mm3 (4.6-6.20); Red Cell Distribution Width 13.2 % (11.5-14.5); White Blood Count 7.4 K/mm3 (4.5-10.0)
[2020-12-09 06:32] LABS: Alanine Aminotransferase 13 U/L (4-50); Albumin Level 3.5 g/dL (3.5-5.1); Alkaline Phosphatase 60 U/L (38-126); Anion Gap 4 mmol/L (8-16); Aspartate Amino Transferase 21 U/L (17-59); Bilirubin,Total 0.8 mg/dL (0.2-1.3); Blood Urea Nitrogen 19 mg/dL (9-20); Calcium 8.9 mg/dL (8.4-10.2); Carbon Dioxide 24 mmol/L (22-30); Chloride 103 mmol/L (98-107); Estimated CRCL calculation 42 ml/min; Estimated Glomerular Filt Rate 50; Glucose 105 mg/dL (75-110); Magnesium 1.9 mg/dL (1.6-2.3); Potassium 4.1 mmol/L (3.4-5.0); Sodium 131 mmol/L (137-145)
--- NOTE | 2020-12-09 08:04 | ECG_ITS ---
Measurements Intervals [place] Rate: 65 P: 50 OR: 193 QRS: -7 QRSD: 110 T: 29 QT: 478 QTc: 501 Interpretive Statements SINUS RHYTHM ATRIAL PREMATURE COMPLEX T WAVE ABNORMALITY IN ANTERIOR LEADS- CONSIDER ISCHEMIA BASELINE ARTIFACT- I, III, AVR, AVL, AVF ABNORMAL ECG Electronically Signed On 12-09-2020 9:47:19 CDT by Charles Hill D.O.
[2020-12-09] MEDS: FLECAINIDE ACETATE 100 MG TABLET PO (08:25)
[2020-12-09] MEDS: THIAMINE HCL 100 MG TABLET PO (08:25)
[2020-12-09] MEDS: FOLIC ACID 1 MG TABLET PO (08:26)
[2020-12-09] MEDS: APIXABAN 5 MG TABLET PO ×2 (08:26→21:19)
[2020-12-09] MEDS: METOPROLOL TARTRATE 50 MG TAB PO ×2 (08:26→20:28)
--- NOTE | 2020-12-09 09:15 | PM.DS ---
DS: Discharge Diagnosis Discharge Diagnosis (1) Atrial fibrillation with RVR: Code(s): I48.91 - Unspecified atrial fibrillation Status: Acute (2) Acute systolic heart failure: Code(s): I50.21 - Acute systolic (congestive) heart failure Status: Acute (3) Tobacco dependence: Code(s): F17.200 - Nicotine dependence, unspecified, uncomplicated Status: Acute (4) Elevated serum creatinine: Code(s): R79.89 - Other specified abnormal findings of blood chemistry Status: Acute DS: Summary Status at Discharge Functional status at discharge: independent ambulation Time Spent with Patient Time attestation: Total time spent providing and/or coordinating discharge services:36 min Time spent: Greater than 30 minutes Exam Narrative: Exam Narrative: . DS: Data Data Completed and Pending Labs on day of discharge: Labs from last 24 hours 12/09/20 12/09/20 06:09 06:09 WBC 7.4 RBC 4.08 L Hgb 13.8 L Hct 41.8 L MCV 102.5 H MCH 33.8 MCHC 33.0 RDW 13.2 Plt Count 179 MPV 10.1 Sodium 131 L Potassium 4.1 Chloride 103 Carbon Dioxide 24 Anion Gap 4 L BUN 19 Creatinine 1.40 H Estim Creat Clear Calc 42 Estimated GFR 50 L Glucose 105 Calcium 8.9 Magnesium 1.9 Total Bilirubin 0.8 AST 21 ALT 13 Alkaline Phosphatase 60 Total Protein 6.0 L Albumin 3.5 Discharge Plan Discharge Attending physician on discharge: Monty Bernabe Consulting providers: Yony Dasilva Discharging Clinician: Mercedes Weaver Patient Disposition: Home, Self-Care Activity: as tolerated Diet: heart healthy Discharge Instructions: -please note your medications have changed -You are now on a blood thinner . This will make you bleed easier. If you have a wound or scrape yourself, you will need to hold pressure for a longer period of time. If you fall or hit your head, you will need to seek medical attention right away. Stop and call your doctor if you start to have dark tary stools as this can indicate internal bleeding -weigh yourself daily, if you gain more than 5 lb in 1 week or start to notice worsening swelling in your lower extremities, call your primary care physician to see if your medications need to be temporarily adjusted to prevent future hospitalizations. -follow-up with your primary care physician in 1-2 weeks about this stay -follow-up with cardiology as recommended. You have been given their number. -If you have stroke like symptoms which include: numbness/tingling to any part of the body, asymmetrical features, problems with speech, problems with word-finding, problems with balance or walking, or worsened confusion call 911 -worrisome signs and symptoms come back to emergency room for: Chest pain, shortness of breath, progressive significant weakness, symptoms above, fevers 100.4 or greater, or any other worrisome symptom. Patient Instructions: Flecainide (By mouth), Apixaban (By mouth), How to Stop Smoking (GEN), Cigarette Smoking and Your Health (GEN) Stand Alone Forms: General Discharge Information Follow-up/Referrals: Yony Dasilva MD [Physician] - Call for Appointment Oli,Kelly Gutierrez MD [Primary Care Provider] - 1 Week Discharge Medications: New Eliquis 5 mg Tablet 5 mg PO Q12HR Qty: 60 RF: 0 folic acid 1 mg Tablet 1 mg PO DAILY Qty: 30 RF: 0 thiamine HCl (vitamin B1) [Vitamin B-1] 100 mg Tablet 100 mg PO QAM Qty: 30 RF: 0 Continued aspirin 81 mg Tablet 81 mg PO DAILY RF: 0 Date of admission: 12/07/20 14:28 Primary Care Provider: OliKelly Admitting Provider: Letty De La Rosa Attending physician on admission: Mercedes Weaver Condition: Stable Quality VTE Prophylaxis VTE prophylaxis: mechanical ordered
--- NOTE | 2020-12-09 10:18 | PM.PNCARD ---
Progress Note: A&P Assessment and Plan (1) Atrial fibrillation with RVR: Code(s): I48.91 - Unspecified atrial fibrillation Status: Acute Assessment and Plan: Admitted with new onset AFib RVR. Failed antiarrhythmic therapy with sotalol. Has converted to sinus rhythm on moderate dose flecainide. Unfortunately his EKG shows QT prolongation this morning. (2) QT prolongation: Code(s): R94.31 - Abnormal electrocardiogram [ECG] [EKG] Status: Acute Assessment and Plan: Patient's EKG this morning showed QT prolongation, QTC of 501 milliseconds as well as some T-wave changes anteriorly. May have had some QT prolongation on sotalol as well, though a little difficult to measure 2nd a fib at that time. I have explained to the patient that this can be a proarrhythmic side effect of flecainide in some individuals and predispose him to a different type of arrhythmia, which can very serious and can lead to cardiac arrest. I am very uneasy about discharging this patient today since he has had recently both sotalol and now moderate dose flecainide, has structural heart disease (a risk factor for proarrhythmic effect), and as mentioned the QT prolongation. We do not know if he has any ischemia/CAD, although he denies any signs or symptoms of CAD. I recommended we discontinue flecainide now. I recommended patient stay for another night to make sure he is safe. Patient is very disappointed as he wanted to go home today, ?Oh, come on! This can go on for ever!? and has expressed an interest in leaving today. I have asked him to think it over and we can touch base later today. (3) Cardiomyopathy: Code(s): I42.9 - Cardiomyopathy, unspecified Status: Acute Assessment and Plan: Rales on exam, appears to be in acute systolic CHF on admission, mild pleural effusions, and EF 35-40%. Hopefully just a rate related cardiomyopathy that will improve with time. On metoprolol, will add lisinopril 10 mg daily. Still in some CHF; will give furosemide 40mg po x 1. No need for ASA; will DC it. (4) Sinus pause: Code(s): I45.5 - Other specified heart block Status: Acute Assessment and Plan: Short sinus pauses noted, the longest being for 2.6 seconds which occurred around 8:00 a.m. although most were occurring through the night. Patient says he does snore but has never been diagnosed to have sleep apnea. May need a sleep study for further evaluation as sleep apnea will have an effect on atrial fibrillation recurrence. (5) CKD (chronic kidney disease): Code(s): N18.9 - Chronic kidney disease, unspecified Status: Acute Assessment and Plan: CKD noted; follow renal fxn while on lisinopril. (6) Tobacco dependence: Code(s): F17.200 - Nicotine dependence, unspecified, uncomplicated Status: Acute Assessment and Plan: Trying to quit Subjective Date/time seen: 12/09/20 10:18 Interval history: Follow-up for paroxysmal atrial fibrillation, new onset, and cardiomyopathy. Echo EF 35-40%. Started on anticoagulation and sotalol and underwent cardioversion on 12/08/2020. However he did not maintain sinus rhythm for long. Sotalol was changed to flecainide 12/08/2020. Date of service 12/09/2020: Started on flecainide 100 mg b.i.d. yesterday morning and has converted to sinus rhythm overnight. Some pauses were noted particularly was sleep but the longest was 2.6 seconds around 8:00 a.m.. Patient says he feels great, ?100%.? Denies any shortness of breath, chest pain, dizziness. Denies any history of sleep apnea but says he does snore. 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
--- NOTE | 2020-12-09 10:54 | PM.IMPN ---
Progress Note: A&P Assessment and Plan (1) Atrial fibrillation with RVR: Code(s): I48.91 - Unspecified atrial fibrillation Status: Acute Assessment and Plan: New onset afib noted on EKG on admission and EKG this morning showing NSR -Ekg showing prolonged QT on today's EKG, flecainide discontinued by cardiology -Continue with metoprolol -[id number] is 2, Eliquis continued -patient was cardioverted 12/08/20 but went right back and atrial fibrillation -continue to monitor in the IMU (2) Acute systolic heart failure: Code(s): I50.21 - Acute systolic (congestive) heart failure Status: Acute Assessment and Plan: Echo reveals an EF 35-40% in a patient is a smoker -he is not having any chest pain -Pt has been receiving intermittent lasix which is improving his symptoms. -lisinopril was started today, agree with that. -consider outpatient stress testing/ischemic workup, defer to cardiology (3) Tobacco dependence: Code(s): F17.200 - Nicotine dependence, unspecified, uncomplicated Status: Acute Assessment and Plan: Pt understands he needs to quit smoking (4) Elevated serum creatinine: Code(s): R79.89 - Other specified abnormal findings of blood chemistry Status: Acute Assessment and Plan: Cr increased to 1.4 today, will continue to monitor. (5) QT prolongation: Code(s): R94.31 - Abnormal electrocardiogram [ECG] [EKG] Status: Acute Assessment and Plan: Worsening with antiarrhythmics -flecainide held -continue to monitor on telemetry, re-check EKG in the AM -await cardiology's recommendations Time Spent With Patient Time with patient: 25 - 35 minutes Subjective Date/time seen: 12/09/20 10:54 Interval history: Pt is a 70 y/o male here for afib rvr with new systolic HF. Pt was seen today and is doing better. he has no further SOB or orthopnea. He continues to deny CP. He is eating and drinking well with no nausea, vomiting, diarrhea or constipation. He is eating well without issue. Review of Systems Review of Systems: All systems reviewed & are unremarkable except as noted in HPI and below Exam Narrative: Exam Narrative: General:Well developed well nourished patient resting in bed in NAD HEENT: Normocephalic, atraumatic, PERRL, Sclerae anicteric, oral mucosa moist. Neck: Supple Resp: CTA today--improved Heart: Regular rate and rhythm on exam. Telemetry shows normal sinus rhythm starting overnight. EKG ordered Abd: Soft, nontender. No pain to palpation. Positive bowel sounds Skin: Warm and dry Extremities: No swelling, erythema or pain to palpation Neuro: Alert and Oriented x4 . CN 2-12 intact. No focal neurological deficits. Objective Data Vital Signs Vital Signs: Vital Signs - 24 hr 12/08/20 11:00 12/08/20 11:10 12/08/20 11:15 Temperature 97.8 F Pulse Rate 114 H 108 H 97 Respiratory Rate 22 H 23 H 25 H Blood Pressure 152/111 H 150/113 H 115/70 Pulse Oximetry 93 98 93 12/08/20 11:30 12/08/20 11:45 12/08/20 12:00 Temperature Pulse Rate 107 H 102 H 99 Respiratory Rate 22 H 20 22 H Blood Pressure 138/94 H 140/103 H 150/92 H Pulse Oximetry 93 94 95 12/08/20 12:15 12/08/20 12:16 12/08/20 12:59 Temperature 98 F Pulse Rate 99 99 98 Respiratory Rate 14 Blood Pressure 130/98 H Pulse Oximetry 95 12/08/20 14:00 12/08/20 15:56 12/08/20 16:00 Temperature 97.7 F Pulse Rate 86 96 73 Respiratory Rate 16 Blood Pressure 129/79 Pulse Oximetry 98 12/08/20 18:00 12/08/20 18:37 12/08/20 20:00 Temperature 98.1 F Pulse Rate 86 84 84 Respiratory Rate 16 Blood Pressure 122/96 H Pulse Oximetry 96 12/08/20 20:05 12/08/20 21:47 12/08/20 23:58 Temperature 97.4 F L Pulse Rate 82 62 66 Respiratory Rate 18 Blood Pressure 124/77 Pulse Oximetry 100 12/09/20 00:00 12/09/20 01:45 12/09/20 04:00 Temperature 97 F L Pulse Rate 69 76 71 Respi
[2020-12-09] MEDS: ASPIRIN 81 MG CHEWABLE TABLET PO (11:38)
[2020-12-09] MEDS: ALPRAZolam (*CRX) 0.125 MG TABLET PO ×3 (11:38→21:19)
[2020-12-09] MEDS: MAG HYDROX/AL HYDROX/SIMETH 30 ML UDC PO (14:47)
[2020-12-09] MEDS: MELATONIN 5 MG TABLET PO (21:19)
[2020-12-10] VITALS (7 sets, daily range): BP systolic 143–148; BP diastolic 96–99; PULSE 60–72; RESP 18; TEMP 36.1–36.5; O2SAT 93–99
[2020-12-10] MEDS: MAG HYDROX/AL HYDROX/SIMETH 30 ML UDC PO (04:31)
[2020-12-10 05:14] LABS: Alanine Aminotransferase 24 U/L (4-50); Albumin Level 3.9 g/dL (3.5-5.1); Alkaline Phosphatase 69 U/L (38-126); Anion Gap 3 mmol/L (8-16); Aspartate Amino Transferase 33 U/L (17-59); Bilirubin,Total 0.7 mg/dL (0.2-1.3); Blood Urea Nitrogen 26 mg/dL (9-20); Calcium 9.1 mg/dL (8.4-10.2); Carbon Dioxide 32 mmol/L (22-30); Chloride 99 mmol/L (98-107); Estimated CRCL calculation 31 ml/min; Estimated Glomerular Filt Rate 35; Glucose 105 mg/dL (75-110); Potassium 4.1 mmol/L (3.4-5.0); Sodium 134 mmol/L (137-145)
--- NOTE | 2020-12-10 07:00 | ECG_ITS ---
Measurements Intervals [place] Rate: 65 P: 51 SC: 201 QRS: -10 QRSD: 106 T: 31 QT: 476 QTc: 498 Interpretive Statements SINUS RHYTHM INCOMPLETE RIGHT BUNDLE BRANCH BLOCK BORDERLINE ECG Electronically Signed On 12-10-2020 7:10:25 CDT by Charles Hill D.O.
[2020-12-10] MEDS: FOLIC ACID 1 MG TABLET PO (09:18)
[2020-12-10] MEDS: THIAMINE HCL 100 MG TABLET PO (09:18)
[2020-12-10] MEDS: APIXABAN 5 MG TABLET PO (09:18)
[2020-12-10] MEDS: METOPROLOL TARTRATE 50 MG TAB PO (09:18)
[2020-12-10] MEDS: ASPIRIN 81 MG CHEWABLE TABLET PO (09:20)
--- NOTE | 2020-12-10 09:32 | PM.PNCARD ---
Progress Note: A&P Additional Plan 70-year-old man with: Paroxysmal atrial fibrillation probably driven by chronic lung disease from smoking. He is currently in sinus rhythm and is taking metoprolol and apixaban. He appears to be good candidate for discharge this morning. Spoke to the patient at length about more aggressive antiarrhythmic agents should he have symptomatic recurrences and also about ablation procedures if necessary in the future. I will make arrangements to see him in the office for follow-up and his metoprolol and apixaban should be continued at discharge. Yony Dasilva MD [facility] Subjective Date/time seen: Date of service: 12/10/20 09:32 Interval history: Follow-up visit in this 70-year-old man with: Paroxysmal atrial fibrillation now in sinus rhythm. Patient appeared to chemically convert to sinus rhythm with flecainide which has now been discontinued because of longer QT interval. He is asymptomatic this morning feels well on hoping to be discharged. Exam Const: General: comfortable and no acute distress HENMT: Mouth: Yes moist mucous membranes Eyes: Sclera: sclerae normal Pupils: Equal, round and reactive pupils present Neck: Neck: supple and no JVD Thyroid: thyroid normal Resp: Effort & Inspection: normal respiratory effort Auscultation: clear to auscultation bilaterally Other: Breath sounds are somewhat diminished but otherwise clear bilaterally Cardio: Rate: regular rate Rhythm: regular rhythm GI: GI Palp: Yes Soft to palpation Auscultation: normal bowel sounds Skin: General skin exam: normal color Neuro: Cognition (Neuro): normal cognition Extrem: General: normal to inspection Objective Data Vital Signs Vital Signs: Vital Signs - 24 hr 12/09/20 10:00 12/09/20 12:00 12/09/20 14:00 Temperature 36.1 C L Pulse Rate 58 L 60 59 L Respiratory Rate 12 Blood Pressure 112/72 Pulse Oximetry 96 12/09/20 16:00 12/09/20 18:00 12/09/20 19:19 Temperature 36.2 C L 36.6 C Pulse Rate 58 L 59 L 57 L Respiratory Rate 12 12 Blood Pressure 136/79 123/78 Pulse Oximetry 97 94 12/09/20 20:00 12/09/20 20:28 12/09/20 22:00 Temperature Pulse Rate 65 88 65 Respiratory Rate Blood Pressure Pulse Oximetry 12/09/20 23:32 12/10/20 00:00 12/10/20 01:39 Temperature 36.4 C L Pulse Rate 65 65 61 Respiratory Rate 18 Blood Pressure 144/98 H Pulse Oximetry 94 12/10/20 04:00 12/10/20 05:48 12/10/20 08:00 Temperature 36.5 C 36.1 C L Pulse Rate 65 70 60 Respiratory Rate 18 18 Blood Pressure 148/99 H 143/96 H Pulse Oximetry 93 99 12/10/20 09:18 Temperature Pulse Rate 60 Respiratory Rate Blood Pressure Pulse Oximetry Intake/Output Intake/Output: Intake & Output 12/07/20 12/08/20 12/09/20 12/10/20 23:59 23:59 23:59 23:59 Intake Total 1650 1090 240 250 Output Total 500 1200 1375 200 Balance 1150 110 -0330 50 Meds/Results Medications: Active Medications Generic Name Dose Route Start Last Admin Trade Name Freq PRN Reason Stop Dose Admin Al Hydrox/Mg Hydrox/Simethicone 30 ml 12/09/20 12:03 12/10/20 04:31 Mag Hydrox/Al Hydrox/Simeth 30 Ml Udc PO 30 ml Q4H PRN Administration indigestion or nausea Alprazolam 0.125 mg 12/08/20 17:40 12/09/20 21:19 Alprazolam (*Crx) 0.125 Mg Tablet PO 0.125 mg TID PRN Administration Anxiety Apixaban 5 mg 12/07/20 21:00 12/10/20 09:18 Apixaban 5 Mg Tablet PO 5 mg Q12HR ELADIO Administration Aspirin 81 mg 12/07/20 09:00 12/10/20 09:20 Aspirin 81 Mg Chewable Tablet PO 01/06/21 09:01 81 mg DAILY ELADIO Administration Flecainide Acetate 100 mg 12/08/20 09:00 12/09/20 08:25 Flecainide Acetate 100 Mg Tablet PO 100 mg Q12HR ELADIO Administration Folic Acid 1 mg 12/08/20 09:00 12/10/20 09:18 Folic Acid 1 Mg Tablet PO 1 mg DAILY ELADIO Administration Levalbuterol HCl 2 puff 12/07/20 08:29 Levalbuterol Hfa (*Sp) 15 Gm Inha
--- NOTE | 2020-12-10 11:01 | PM.DS ---
DS: Admitting Diagnosis Admitting Diagnosis Admitting Diagnosis: Tachycardia, Shortness of breath DS: Discharge Diagnosis Discharge Diagnosis (1) Atrial fibrillation with RVR: Code(s): I48.91 - Unspecified atrial fibrillation Status: Acute Assessment and Plan: New onset afib noted on EKG on admission and EKG this morning showing NSR -Ekg showing prolonged QT on today's EKG, flecainide discontinued by cardiology -Continue with metoprolol -[id number] is 2, Eliquis continued -patient was cardioverted 12/08/20 but went right back and atrial fibrillation, then again converted to NSR and stayed there. - patient appears to have maintained NSR upon review of Telemetry and this mornings EKG - QT interval measurements also improved - avoiding Sotalol and Fecinaide. - agree with Architectural Manager to continue just the Metoprolol and anticoagulation at discharge. - instructed and educated patient on how to check his VS and heart rate rhythm at home for any concerns. (2) Acute systolic heart failure: Code(s): I50.21 - Acute systolic (congestive) heart failure Status: Acute Assessment and Plan: Echo reveals an EF 35-40% in a patient is a smoker -he is not having any chest pain, no SOB today. -Pt has been receiving intermittent lasix which is improving his symptoms. - lisinopril was not continued. BPS are controlled at this time with SBPs 140s. -consider outpatient stress testing/ischemic workup, defer to cardiology -recommend Sleep Study and Pulmonary Function Tests after discharge (3) Tobacco dependence: Code(s): F17.200 - Nicotine dependence, unspecified, uncomplicated Status: Acute Assessment and Plan: Pt understands he needs to quit smoking Offered education and support (4) Elevated serum creatinine: Code(s): R79.89 - Other specified abnormal findings of blood chemistry Status: Acute Assessment and Plan: Cr increased to 1.4 and 1.9, will order labs BMP at discharge for patient to follow up with PCP to review will continue to monitor. DS: Summary Hospital Course Hospital Course: Patient found to have Atrial Fibrillation, Architectural Manager consulted, ECHO completed, converted with BB, continued on oral BB, PRN diuresis, and continuous telemetry monitoring until QT interval improved and maintained NSR. SOB and tachycardia resolved. Time Spent with Patient Time attestation: Total time spent providing and/or coordinating discharge services:45 minutes Exam Const: General: cooperative, healthy appearing, comfortable, no acute distress, alert, awake and Physically active; No confusion Nutritional Appearance: average body habitus Orientation/consciousness: patient oriented x3 and No confusion HENMT: Head: normal to inspection Ears: hearing grossly normal bilaterally General nose exam: no epistaxis Mouth: Yes moist mucous membranes Eyes: General: appearance normal, both eyes and all related structures Eyelids: eyelids normal Sclera: sclerae normal Pupils: Equal, round and reactive pupils present EOM: EOMs intact bilaterally Neck: Neck: full ROM, supple and no JVD Thyroid: thyroid normal Chest: Chest palpation & inspection: normal inspection of the chest Resp: Effort & Inspection: normal respiratory effort, able to speak in complete sentences, no audible wheezes, no cough, respiratory effort not decreased, not labored, no respiratory distress and no retractions Auscultation: clear to auscultation bilaterally, no crackles, no rales (Rales in left lower lobe) and no wheezes (expiratory wheezing) Other: Breath sounds are somewhat diminished but otherwise clear bilaterally Cardio: Rate: regular rate and tachycardic Rhythm: regular rhythm and abnormal rhythm irregularly irregular Heart sounds: S1 normal heart sound present, S2 normal heart sound present and no murmurs GI: Inspection: normal to inspection and non-distended GI Palp: No abdominal tenderness, Yes Soft
== END 2020-12-10 11:50 | disposition home or self-care (01) | DRG 308 ==
LOC: ANHED 10:13 → ANHIMU 11:30
PROVIDERS: Physician Assistant; Specialist; Admitting Provider Family Medicine; Emergency Provider General Practice; PCP Family Medicine; Visit Provider Nurse Practitioner
PROC: 5A2204Z Restoration of Cardiac Rhythm, Single (ICD-10-PCS; principal; 2020-12-08 09:45)
DX: I48.0 Paroxysmal atrial fibrillation (principal); I50.21 Acute systolic (congestive) heart failure; E87.1 Hypo-osmolality and hyponatremia; I42.9 Cardiomyopathy, unspecified; I45.5 Other specified heart block; R94.31 Abnormal electrocardiogram [ECG] [EKG]; R79.89 Other specified abnormal findings of blood chemistry; F10.10 Alcohol abuse, uncomplicated; F17.210 Nicotine dependence, cigarettes, uncomplicated; Z96.643 Presence of artificial hip joint, bilateral; Z79.82 Long term (current) use of aspirin; Z88.2 Allergy status to sulfonamides
CPT/HCPCS: 36415; 71045; 71275; 80048; 80053; 80061; 80076; 82607; 82746; 83735; 83880; 84443; 84484; 85025; 85027; 85610; 85730; 92960; 93005; 93306; 96365; 96366; 96372; 96375; 96376; 99285; A9270; G0378; J1650; J1940; J2704; J7040; Q9967

== ENCOUNTER 2021-02-09 11:26 | Emergency (ER) | payer MEDICARE, SELFPAY ==
[2021-02-09] VITALS (12 sets, daily range): BP systolic 145–172; BP diastolic 87–120; PULSE 64–81; RESP 16–25; TEMP 36.4; O2SAT 98
--- NOTE | ~2021-02-09 | CT_ITS ---
EXAMINATION: CT brain wo con INDICATION: Diplopia COMPARISON: None TECHNIQUE: Standard unenhanced head CT. The dose-length product (DLP) was 605.33 mGy-cm. The mA was a djusted according to patient size. Iterative reconstruction technique was employed. FINDINGS: There is no acute intraparenchymal hemorrhage. No evidence of mass lesion. No evidence of a cute infarction. There is mild periventricular and subcortical hypodensity probably related to small vessel ischemic disease. There is mild prominence of the sulci and ventricles related to cerebral atr ophy. Intracranial calcified cerebral atherosclerosis is noted. There are no extra-axial collections. There is no mass effect or midline shift. The orbits and soft tissues are unremarkable. The visualiz ed sinuses and mastoid air cells are well aerated. IMPRESSION: 1. No acute intracranial abnormality. 2. Age related findings. Reviewed, dictated and finalized at location A.
--- NOTE | ~2021-02-09 | CT_ITS ---
EXAMINATION: CTA brain carotid EXAM DATE: 02/09/2021 13:52 INDICATION: Visual disturbance right eye. TECHNIQUE: Spiral CTA of the carotid arteries was performed with intravenous injection 100 cc of Om nipaque 350. Axial, coronal, sagittal reformatted images reviewed. Additional reformatted images cre ated on dedicated 3-D workstation. NASCET comparable standard used to assess the degree of arterial stenosis. Spiral CT angiogram cerebral arteries performed with the same intravenous injection of con trast. Source images of the brain CTA transferred to dedicated workstation for 3-D rotational image c reation. Coronal, sagittal maximum intensity pixel images also reviewed. The dose-length product (D LP) for this examination was 1022.83 mGy-cm. The exposure was tailored according to patient size, a nd iterative reconstruction (ASIR) was used as additional dose reduction technique. Correlation is ma de to noncontrast head CT performed earlier. FINDINGS: There is mild bilateral carotid bulb arterial sclerosis with 0% stenosis bilaterally. The r ight vertebral artery is dominant. There is right-sided posterior communicating artery dominant poste rior cerebral artery. There is no carotid or vertebral basilar arterial dissection or fibromuscula r dysplasia. There are no cerebral artery aneurysms. There is symmetric cerebral artery arborization. The sagittal, transverse and sigmoid sinuses enhance normally, no venous sinus thrombosis. Internal cerebral veins also enhance normally. Incidental Findings: Mild microangiopathy. Mild apical scarring and emphysema. Advanced cervical spon dylosis. IMPRESSION: 1. No acute carotid or intracranial findings. 2. Bilateral carotid 0% stenosis. Reviewed, dictated and finalized at location A.
--- NOTE | 2021-02-09 12:58 | ECG_ITS ---
Measurements Intervals [place] Rate: 75 P: [place]: 0 QRS: -23 QRSD: 105 T: 61 QT: 408 QTc: 457 Interpretive Statements ATRIAL FIBRILLATION INCOMPLETE RIGHT BUNDLE BRANCH BLOCK NONSPECIFIC ST & T-WAVE ABNORMALITY- LAT/HIGH LAT LEADS ABNORMAL ECG Electronically Signed On 02-09-2021 15:24:45 CDT by Charles Hill D.O.
[2021-02-09 13:19] LABS: Basophils Absolute Auto 0.1 K/mm3 (0.0-0.1); Basophils Percent Auto 0.7 % (0.2-1.2); Eosinophils Absolute Auto 0.1 K/mm3 (0-0.3); Eosinophils Percent Auto 1.3 % (0-4.4); Hematocrit 48.9 % (42.0-52.0); Hemoglobin 15.7 g/dL (14.0-18.0); Immature Granulocyte Absolute 0.02 K/mm3 (0.00-0.031); Immature Granulocyte Percent A 0.3 % (0-0.5); Lymphocytes Absolute Auto 1.81 K/mm3 (0.9-3.2); Lymphocytes Percent Auto 25.5 % (18.3-44.2); Mean Corpuscular HGB Conc 32.1 g/dl (32-36); Mean Corpuscular Hemoglobin 31.3 pg (26-34); Mean Corpuscular Volume 97.4 fl (80-100); Mean Platelet Volume 9.4 fl (7.4-10.4); Monocytes Absolute Auto 0.7 K/mm3 (0.1-0.6); Monocytes Percent Auto 10.3 % (2.6-8.5); Neutrophils Absolute Auto 4.4 K/mm3 (1.3-6.7); Neutrophils Percent Auto 61.9 % (45.5-73.1); Platelet Count Result 225 k/mm3 (150-375); Red Blood Count 5.02 M/mm3 (4.6-6.20); Red Cell Distribution Width 13.5 % (11.5-14.5); White Blood Count 7.1 K/mm3 (4.5-10.0)
[2021-02-09 13:29] LABS: Alanine Aminotransferase 23 U/L (4-50); Alkaline Phosphatase 87 U/L (38-126); Anion Gap 6 mmol/L (8-16); Aspartate Amino Transferase 30 U/L (17-59); Bilirubin,Total 0.6 mg/dL (0.2-1.3); Blood Urea Nitrogen 15 mg/dL (9-20); Calcium 9.3 mg/dL (8.4-10.2); Carbon Dioxide 29 mmol/L (22-30); Chloride 104 mmol/L (98-107); Estimated CRCL calculation 45 ml/min; Estimated Glomerular Filt Rate 54; Glucose 114 mg/dL (75-110); Potassium 4.4 mmol/L (3.4-5.0); Sodium 139 mmol/L (137-145)
--- NOTE | 2021-02-09 13:41 | ED.GENADULT ---
HPI - General Adult General Chief complaint: Eye Problems Stated complaint: Blurred vision R eye on blood thinner Time Seen by Provider: 02/09/21 12:52 Source: patient History of Present Illness HPI narrative: Patient is 70 y/o male complaining of moderate blurred vision of right eye starting 2 days ago. He states that it feels like there a webbing and floaters. He is able to see. There is no known alleviating or exacerbating factor. He has no focal weakness/numbness in his arms or legs. He has no difficulty with speech. Of note, he is on Eliquis for chronic A fib. Related Data Allergies Allergy/AdvReac Type Severity Reaction Status Date / Time Sulfa (Sulfonamide Allergy Unknown Verified 02/09/21 12:24 Antibiotics) Review of Systems Constitutional: Constitutional: Denies chills, Denies fever(s), Denies headache(s) and Denies weakness Eyes: Eyes: Reports blurry vision ENT: Denies headache(s) and Denies neck pain Cardiovascular: Cardiovascular: Denies chest pain and Denies dyspnea Respiratory: Respiratory: Denies cough and Denies dyspnea Gastrointestinal: Gastrointestinal: Denies abdominal pain, Denies diarrhea, Denies nausea and Denies vomiting Genitourinary: Genitourinary: Denies hematuria and Denies dysuria Musculoskeletal: Musculoskeletal: Denies back pain and Denies neck pain Neurologic: Denies headache(s) and Denies weakness PMFSH Past Medical History Medical History Osteoarthritis Patient denies medical problems Surgical History Surgical History History of appendectomy History of bilateral hip replacements Family History Family History Mother Lung cancer Father Lung cancer Sibling Arthritis Mother Arthritis Social History Social History Social History: Pt smokes about 1-2 cigarettes a day and is trying to cut down. He also smokes marijuana occasionally. He does not drugs such as cocaine. He drinks 3-4 beers a day. 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 If he is unable to make decisions for himself, he would like his , Allyn, to make decisions for him. Smoking packs per day: 1 Smoking cigarettes per day: 20.0 Years smoked: 40 Smoking pack-years: 40.00 Smoking status: Current every day smoker Tobacco type: cigarettes Smoking end date: 12/06/20 Alcohol intake: current Drinks per week: 21 Substance use: former Substance use type: marijuana Gender identity (if verbalized by the patient): Male Spiritual care concerns: No Exam Const: General: no acute distress and well developed Orientation/consciousness: oriented to person, oriented to place, oriented to time and patient oriented x3 HENMT: Head: normocephalic Ears: external ears normal General nose exam: Normal external nose present Eyes: General: appearance normal, both eyes and all related structures Conjunctivae: conjunctivae normal Neck: Neck: normal visual inspection and full ROM Chest: Chest palpation & inspection: normal inspection of the chest and no tenderness Resp: Effort & Inspection: normal respiratory effort Auscultation: clear to auscultation bilaterally Cardio: Rate: regular rate Rhythm: abnormal rhythm irregularly irregular GI: GI Palp: No abdominal tenderness and Yes Soft to palpation Skin: General skin exam: normal color and turgor normal Neuro: General: oriented to person, oriented to place, oriented to time and patient oriented x3 Cranial nerves: Yes CN's II-XII intact bilaterally Cognition (Neuro): normal cognition Speech: normal speech Motor exam (neuro): 5/5 motor strength present throughout Sensory Exam: normal sensation Coordination: [id number] test normal and [id number] test normal Extrem: General: normal to inspe
[2021-02-09 13:46] LABS: INR 1.4
--- NOTE | 2021-02-09 15:02 | PC.NURSE ---
Visual Acc Results L: 20/50 R: 20/30 Both: 20/30 Used Glasses
== END 2021-02-09 15:30 | disposition home or self-care (01) ==
PROVIDERS: Emergency Provider Emergency Medicine; PCP Family Medicine
DX: H53.8 Other visual disturbances (principal); I48.20 Chronic atrial fibrillation, unspecified; Z79.01 Long term (current) use of anticoagulants; Z96.643 Presence of artificial hip joint, bilateral; F17.210 Nicotine dependence, cigarettes, uncomplicated; I45.10 Unspecified right bundle-branch block; R94.31 Abnormal electrocardiogram [ECG] [EKG]
CPT/HCPCS: 36415; 70450; 70496; 70498; 80053; 85025; 85610; 85730; 93005; 99284; Q9967

== ENCOUNTER 2021-02-13 02:13 | Day surgery (SDC) | payer MEDICARE, SELFPAY ==
[2021-02-12 15:50] VITALS: BMI 23.1
[2021-02-13] VITALS (8 sets, daily range): BP systolic 135–165; BP diastolic 83–126; PULSE 50–82; RESP 12–20; TEMP 36.2; O2SAT 94–98
--- NOTE | 2021-02-13 07:37 | ECG_ITS ---
Measurements Intervals [place] Rate: 77 P: [place]: 0 QRS: -19 QRSD: 104 T: 64 QT: 404 QTc: 457 Interpretive Statements ATRIAL FIBRILLATION INCOMPLETE RIGHT BUNDLE BRANCH BLOCK DELAYED PRECORDIAL R/S TRANSITION NONSPECIFIC ST & T-WAVE ABNORMALITY- HIGH LATERAL LEADS ABNORMAL ECG Electronically Signed On 02-13-2021 8:13:26 CDT by Charles Hill D.O.
[2021-02-13 08:27] LABS: Anion Gap 7 mmol/L (8-16); Blood Urea Nitrogen 15 mg/dL (9-20); Calcium 9.3 mg/dL (8.4-10.2); Carbon Dioxide 29 mmol/L (22-30); Chloride 103 mmol/L (98-107); Estimated CRCL calculation 45 ml/min; Estimated Glomerular Filt Rate 54; Glucose 101 mg/dL (75-110); Potassium 4.1 mmol/L (3.4-5.0); Sodium 139 mmol/L (137-145)
--- NOTE | 2021-02-13 08:30 | WPDMODSED ---
Moderate Sedation Note-Pt Data Patient Data Allergies Allergy/AdvReac Type Severity Reaction Status Date / Time Sulfa (Sulfonamide Allergy Unknown Verified 02/12/21 15:56 Antibiotics) Home Medications Medication Instructions Recorded Confirmed Type apixaban [Eliquis] 5 mg PO Q12HR 30 Days #60 tablet 12/09/20 02/12/21 Rx levalbuterol tartrate [Xopenex HFA] 2 puff INHALATION Q6HRT PRN 30 12/10/20 02/12/21 Rx Days #15 g metoprolol tartrate 50 mg PO Q12HR 30 Days #60 tablet 12/10/20 02/12/21 Rx amiodarone 200 mg PO DAILY 02/12/21 02/12/21 History Current Medications: Active Medications Sodium Chloride (Normal Saline Iv) 500 mls @ 30 mls/hr IV CONT .[id number] ELADIO Sedation/Anesthesia: No previous sedation/anesthesia problems (including family history). [facility] Past Medical History Medical History Osteoarthritis Patient denies medical problems Surgical History Surgical History History of appendectomy History of bilateral hip replacements Family History Family History Mother Lung cancer Father Lung cancer Sibling Arthritis Mother Arthritis Social History Social History Social History: Pt smokes about 1-2 cigarettes a day and is trying to cut down. He also smokes marijuana occasionally. He does not drugs such as cocaine. He drinks 3-4 beers a day. 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 If he is unable to make decisions for himself, he would like his , Allyn, to make decisions for him. Smoking packs per day: 0.25 Smoking cigarettes per day: 5.0 Years smoked: 40 Smoking pack-years: 10.00 Smoking status: Current every day smoker Tobacco type: cigarettes Smoking end date: 12/06/20 Alcohol intake: current Drinks per week: 6 Alcohol use details: 3 beers per day. States no history of alcohol withdrawal Substance use: former Substance use type: does not use Living arrangements: with family Gender identity (if verbalized by the patient): Male Sexual Orientation (if Verbalized by the Patient): Straight or Heterosexual Spiritual care concerns: No Mod Sed Physical Exam Physical Exam Pre Procedural Exam: Normal: Appearance, Eyes, Ears, Nose, Neck, Throat, Airway, Lungs, Heart Size, Heart Rate, Heart Rhythm, Neuro Exam, Abdomen, Liver, Kidneys, Spleen, Breasts, Genitalia, Extremities and Skin Hours since solid foods: 8 Hours since liquid intake: 8 Internal Medicine - PN: Obj Da Vital Signs Vital Signs: Vital Signs - 24 hr 02/13/21 07:53 02/13/21 08:40 02/13/21 08:45 Temperature 36.2 C L Pulse Rate 72 82 80 Respiratory Rate 17 13 12 Blood Pressure 165/99 H 158/126 H 153/92 H Pulse Oximetry 97 97 97 02/13/21 08:50 Temperature Pulse Rate 78 Respiratory Rate 20 Blood Pressure 148/87 H Pulse Oximetry 98 Meds/Results Medications: Active Medications Generic Name Dose Route Start Last Admin Trade Name Freq PRN Reason Stop Dose Admin Sodium Chloride 500 mls @ 30 mls/hr 02/13/21 07:00 Normal Saline Iv IV CONT .[id number] ELADIO Labs CBC & Chem 7: 02/13/21 07:44 Labs: Laboratory Results - last 24 hr 02/13/21 07:44 Sodium 139 Potassium 4.1 Chloride 103 Carbon Dioxide 29 Anion Gap 7 L BUN 15 Creatinine 1.30 Estim Creat Clear Calc 45 Estimated GFR 54 L Glucose 101 Calcium 9.3 Magnesium 2.0 ASA Classification/Sedation ASA Classification/Sedation ASA Class: I Emergent: No Risks: Risks, benefits and alternatives explained and patient/family accepted plan for sedation. Patient re-evaluated immediately prior to sedation. Mallampati score 1
--- NOTE | 2021-02-13 08:50 | ECG_ITS ---
Measurements Intervals [place] Rate: 53 P: 33 SC: 188 QRS: -20 QRSD: 108 T: 31 QT: 493 QTc: 467 Interpretive Statements SINUS BRADYCARDIA WITH MARKED SINUS ARRHYTHMIA INCOMPLETE RIGHT BUNDLE BRANCH BLOCK DELAYED PRECORDIAL R/S TRANSITION BORDERLINE ST ABNORMALITY- ANTEROLAT/HIGH LAT LEADS BORDERLINE ECG Electronically Signed On 02-13-2021 9:47:21 CDT by Charles Hill D.O.
--- NOTE | 2021-02-13 08:53 | WPDCARDVER ---
Cardioversion Cardioversion Date of procedure: 02/13/21 Procedure: Date of service 02/13/2021 1- moderate sedation that started at 8:42 a.m. and ended at 8:52 a.m. total duration 10 minutes using 3 mg of Versed and 75 mcg of fentanyl. The registered nurse was pankaj oliveros 2- electric cardioversion of atrial fibrillation Pre-op diagnosis: atrial fibrillation Post-op diagnosis: other ( sinus rhythm) Indications: symptomatic atrial fibrillation Description of procedure: after informed consent, The cardioversion pads were applied in AP manner. IV moderate sedation was administered to the patient. After achieving adequate sedation 200 joules of synchronized cardioversion were applied with successful cardioversion to sinus rhythm. Procedure well. Sedation: Moderate sedation Findings: conversion of atrial fibrillation to sinus rhythm Conclusion: successful cardioversion for atrial fibrillation
--- NOTE | 2021-02-13 08:57 | WPDHPUPDATE1 ---
History and Physical Update Update Date/Time: 02/13/21 08:30am History and Physical has been reviewed, including an updated exam of the patient. There are NO changes in the patient's condition. Risks, benefits, and alternatives have been discussed and questions answered. Patient agrees to proceed with procedure.
[2021-02-13] MEDS: APIXABAN 5 MG TABLET PO (09:35)
== END 2021-02-13 10:40 | disposition home or self-care (01) ==
PROVIDERS: Internal Medicine Cardiovascular Disease; PCP Family Medicine; Visit Provider Specialist
PROC: 5A2204Z Restoration of Cardiac Rhythm, Single (ICD-10-PCS; principal; 2021-02-13 08:30)
DX: I48.91 Unspecified atrial fibrillation (principal); I71.4 Abdominal aortic aneurysm, without rupture; Z79.01 Long term (current) use of anticoagulants; Z79.51 Long term (current) use of inhaled steroids; M19.90 Unspecified osteoarthritis, unspecified site; F17.210 Nicotine dependence, cigarettes, uncomplicated; F12.90 Cannabis use, unspecified, uncomplicated
CPT/HCPCS: 36415; 80048; 83735; 92960; 93005; A9270; J2250; J3010; J7030

== ENCOUNTER 2022-04-01 07:36 | Outpatient (CLI) | payer MEDICARE, SELFPAY ==
--- NOTE | ~2022-04-01 | PE_ITS ---
EXAMINATION: PET skull to mid thigh DATE: 04/01/2022 09:31 INDICATION: Multiple lung nodules TECHNIQUE: Blood glucose level was 73 mg/dL. 10.227 mCi of 18-fluorodeoxyglucose (18-FDG) was adminis tered i.v. Low dose computed tomography (CT) images were acquired from the base of the brain to the p roximal thighs for attenuation correction and anatomic localization. Positron emission tomography (PE T) images were acquired in the same distribution beginning 62 minutes after injection. The dose-lengt h product (DLP) was 542.80 mGy-cm. COMPARISON: 12/06/2020 FINDINGS: Head/neck: No abnormal FDG uptake is identified. Mild FDG uptake in the oral cavity without suspiciou s CT correlate is likely physiologic. Chest: There is a stable 11 mm nodule of the left lower lobe with low level FDG uptake. There is mode rate emphysema. 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 None de monstrate associated FDG uptake. Mild dependent atelectasis is noted. No pathologically enlarged thor acic lymph nodes are identified. The heart size is normal. Calcified coronary artery atherosclerosis is noted. Abdomen/pelvis/proximal thighs: Physiologic FDG activity is present in the bowel and urinary tract. N o abnormal FDG uptake is identified. The liver, spleen, pancreas, gallbladder, and adrenal glands are normal. No pathologically enlarged abdominal or pelvic lymph nodes are identified. There is no free intraperitoneal gas or evidence of bowel obstruction. Colonic diverticulosis is present without evide nce of diverticulitis. Musculoskeletal: No abnormal FDG uptake is identified. Changes of bilateral hip arthroplasty are note d. IMPRESSION: 1. Stable left lower lobe nodule with low-level FDG uptake, probable old granulomatous disease. Reviewed, dictated and finalized at location B. IMPRESSION: 1. Stable left lower lobe nodule with low-level FDG uptake, probable old granul omatous disease.
[2022-04-01 08:04] LABS: Glucose Point of Care 73 mg/dl (65-105)
== END 2022-04-01 07:37 | disposition home or self-care (01) ==
PROVIDERS: PCP Family Medicine; Visit Provider Internal Medicine Pulmonary Disease
DX: R91.8 Other nonspecific abnormal finding of lung field (principal); D89.9 Disorder involving the immune mechanism, unspecified; T78.40XA Allergy, unspecified, initial encounter
CPT/HCPCS: 78815; A9552

== ENCOUNTER 2024-06-05 10:32 | Outpatient (CLI) | payer MEDICARE, SELFPAY ==
--- NOTE | ~2024-06-05 | PE_ITS ---
EXAMINATION: PET skull to mid thigh DATE: 06/05/2024 12:40 INDICATION: Solitary pulmonary nodule. TECHNIQUE: Blood glucose level was 86 mg/dL. 9.840 mCi of 18-fluorodeoxyglucose (18-FDG) was administ ered i.v. Low dose computed tomography (CT) images were acquired from the base of the brain to the pr oximal thighs for attenuation correction and anatomic localization. Automated exposure control was em ployed. Dose-length product (DLP) was 616 mGy-cm. Positron emission tomography (PET) images were acqu ired in the same distribution. COMPARISON: PET/CT 04/01/2022, chest CT 12/06/2020 FINDINGS: Head/neck: There are no pathologically enlarged lymph nodes. Chest: There is mild emphysema. There is mild atelectasis bilaterally. There is a 10 mm nodule in lef t lung lower lobe without increased activity, stable from 04/01/2022. No pleural effusion. The heart s ize is normal. There are coronary artery calcifications. There is an 18 x 10 mm subcarinal lymph node with maximum SUV of 17.9. Abdomen/pelvis/proximal thighs: There is a 6 mm cyst in the liver. The gallbladder, spleen, pancreas, adrenal glands, and kidneys are normal. The prostate is mildly enlarged. There is diverticulosis of the colon without evidence of diverticulitis. There are changes of appendectomy. There is calcified a therosclerosis of the aorta and many of the other arteries. There are no pathologically enlarged lymp h nodes. There is no free intraperitoneal fluid. There are bilateral total hip arthroplasties. IMPRESSION: 1. Stable 10 mm nodule in left lung lower lobe without increased activity, consistent with granulomat ous disease. 2. Subcarinal lymph node with increased activity, likely reactive as an isolated finding. Reviewed, dictated and finalized at location B. IMPRESSION: 1. Stable 10 mm nodule in left lung lower lobe without increased activity, cons istent with granulomatous disease. 2. Subcarinal lymph node with increased activity, likely reactive as an isolate d finding.
[2024-06-05 11:11] LABS: Glucose Point of Care 86 mg/dl (65-105)
== END 2024-06-05 10:33 | disposition home or self-care (01) ==
PROVIDERS: PCP Family Medicine; Visit Provider Internal Medicine Pulmonary Disease
DX: R91.1 Solitary pulmonary nodule (principal); R59.0 Localized enlarged lymph nodes
CPT/HCPCS: 78815; A9552

== ENCOUNTER 2025-07-23 13:48 | Outpatient (CLI) | payer MEDICARE, SELFPAY ==
--- NOTE | ~2025-07-23 | PE_ITS ---
EXAMINATION: PET skull to mid thigh DATE: 07/23/2025 15:33 INDICATION: Solitary nodule of lung TECHNIQUE: Blood glucose level was 96 mg/dL. 9.472 mCi of 18-fluorodeoxyglucose (18-FDG) was administered i.v. Low dose computed tomography (CT) images were acquired from the base of the brain to the proximal thighs for attenuation correction and anatomic localization. Positron emission tomography (PET) images were acquired in the same distribution beginning 50 minutes after injection. Images including fused PET/CT images were reconstructed in axial, coronal, and sagittal planes. Automated exposure control technique was employed. The dose- length product was 623.75mGy-cm. COMPARISON: 06/05/2024 and 04/01/2022 FINDINGS: Head/neck: There is symmetric increased activity in the oral cavity, laryngeal muscles and ocular muscles without CT correlate, likely physiologic. No pathologically enlarged cervical lymphadenopathy or suspicious foci of increased FDG uptake in the visualized head or neck. Chest: Mild emphysema. No interval change since 04/01/2022 in a 10 mm subpleural nodule in the posterior basilar segment left lower lobe which remains without discernible FDG uptake. Also unchanged are a few minimally calcified pleural plaques without abnormal FDG activity along the posterior left lower lobe. No new or enlarging pulmonary nodules or pleural effusion. Heart size is normal. Aortic valve calcification. No pericardial effusion. Interval increase in size of a previously 1.2 x 1.2 cm, currently 2.1 x 2.0 cm inferior right paratracheal lymph node with maximal SUV of 14.5. Interval increase in size of a previously 1.8 x 0.9 cm, currently 2.1 x 0.9 cm subcarinal lymph node with maximal SUV of 14.0. Abdomen/pelvis/proximal thighs: Physiologic renal accumulation and excretion of FDG activity in the kidneys, bladder and along portions of ureters. Normal degree and heterogenous pattern of increased uptake throughout the liver without radiologic correlate or dominant FDG avid lesion. The gallbladder, pancreas, spleen and left adrenal gland are normal. 2.8 x 1.3 cm FDG avid right adrenal nodule with maximal SUV of 16.2. Mild uptake scattered throughout the bowels without radiologic correlate, also likely physiologic. Prostatomegaly measuring 4.3 x 3.8 cm. No other abnormal foci of increased FDG uptake or pathologically enlarged lymphadenopathy in the abdomen, pelvis or proximal thighs. Musculoskeletal: Streak artifact in the pelvis from bilateral total hip arthroplasties. There is likely reactive synovial enhancement about the margins of the right hip arthroplasty. 2.0 x 1.7 cm lytic lesion involving the posterior elements of T5 with prominent increased FDG activity with maximal SUV of 22. No other s uspicious lytic, blastic or abnormally FDG avid bone lesions. IMPRESSION: 1. Mild increase in size of a persistently FDG avid subcarinal lymph node with more prominent increase in size of a second inferior right paratracheal lymph node now also with prominent increased FDG activity. These could be reactive however are no more concerning for metastatic disease given the presence of a new FDG avid right adrenal nodule and a new lytic FDG avid lesion at T5. 2. No interval change in a 10 mm left lower lobe nodule without FDG activity most consistent with old granulomatous disease. Reviewed, dictated and finalized at location A. [employer] IMPRESSION: 1. Mild increase in size of a persistently FDG avid subcarinal lymph node with more prominent increase in size of a second inferior right paratracheal lymph n ode now also with prominent increased FDG activity. These could be reactive how ever are no more concerning for metastatic disease given the presence of a new FDG avid right adrenal nodule and a new lytic FDG avid lesion at T5. 2. No interval change in a 10 mm left lower lobe nodule without FDG activity mo st consistent with old granulomatous disease.
--- OUTSIDE RECORDS SUMMARY | 2025-07-23 15:58 | XMS_ITS | Clinical Summary ---
Author Organization [facility] Address [address] [place] [address] Care Team Providers Care Facilities Maintenance Worker Name Role Phone Fahad Hays MD Primary Care Provider [phone] Allergies Active Allergy Reactions Criticality Noted Date Comments Sulfa (Sulfonamide Antibiotics) Unknown High 11/2019 Medications levalbuterol (XOPENEX HFA) 45 mcg/actuation inhaler 2 puffs every 6 (six) hours as needed 1 Active tiotropium bromide (SPIRIVA RESPIMAT) 2.5 mcg/actuation inhaler Inhale 2 puffs daily Active amiodarone (PACERONE) 200 mg tabletIndications :Atrial fibrillation, unspecified type (HCC) TAKE 1 TABLET(200 MG) BY MOUTH DAILY 90 tablet 2 5 Active empagliflozin (Jardiance) 25 mg tablet Take 1 tablet every day by oral route. 5 Active atorvastatin (LIPITOR) 10 mg tablet Take 1 tablet every day by oral route at bedtime for 90 days. 4 Active Eliquis 5 mg tabletIndications :atrial fibrillation Take 1 tablet (5 mg total) by mouth every 12 (twelve) hours 60 tablet 11 5 Active Active Problems Problem Noted Date Diagnosed Date Paroxysmal atrial fibrillation 06/15/2022 Preoperative cardiovascular examination 06/11/20 20 Palpitations 06/11/2020 Hypercholesteremia 06/11/2020 Abdominal aortic aneurysm (AAA) without rupture 06/11/2020 Tobacco use 06/11/2020 Encounters Date Type Department Care Team Description 05/01/2025 12:24 PM CDT - 05/01/2025 11:59 PM CDT Hospital Encounter [facility] [address] [place] [address] Pulmonary emphysema, unspecified emphysema type (HCC) Discharge Disposition: Discharge to home or self care 05/01/2025 12:23 PM CDT - 05/01/2025 11:59 PM CDT Hospital Encounter [facility] [address] [place] [address] Other nonspecific abnormal finding of lung field Discharge Disposition: Discharge to home or self care 04/30/2025 Telephone [facility] [address] [place] [address] Trent Quesada from Last 3 Months Surgical History Surgery Date Site/Laterality Comments APPENDECTOMY TOTAL HIP ARTHROPLASTY Right Medical History Medical History Date Comments DJD (degenerative joint disease) AAA (abdominal aortic aneurysm) 2016 Tobacco use Hypercholesterolemia Family History Medical History Relation Name Comments Lung cancer Father age 68 Lung cancer Mother age 69 Arthritis Sister 1 Arthritis Sister 2 Relation Name Status Comments Father Mother Sister 1 Alive Sister 2 Alive Social History Tobacco Use Types Packs/Day Years Used Date Smoking Tobacco: Every Day Cigarettes Smokeless Tobacco: Never Tobacco Cessation:Ready to Q uit: Not Asked; Counseling Given: Not Answered Alcohol Use Standard Drinks/Week Comments Yes 0 (1 standard drink = 0.6 oz pur e alcohol) Sex and Gender Information Value Date Recorded Sex Assigned at Not on file Legal Sex Male 10:49 AM CDT Gender Identity Not on file Sexual Orientation Not on file 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 Not on file Not on file Not on file Last Filed Vital Signs Vital Sign Reading Time Taken Comments Blood Pressure 150/88 02/28/2025 10:16 AM CDT Pulse 58 02/28/2025 10:16 AM CDT Temperature - - Respiratory Rate 18 06/11/2020 2:47 PM MAINFRAME SYSTEMS ENGINEER Oxygen Saturation 99% 02/28/2025 10:16 AM CDT Inhaled Oxygen Concentration - - Weight 66 kg (145 lb 6.4 oz) 02/28/2025 10:16 AM CDT Height 172.7 cm (5' 8) 02/28/2025 10:16 AM CDT Body Mass Index 22.11 02/28/2025 10:16 AM CDT Plan of Treatment Health Maintenance Due Date Last Done Comments Colon Cancer Screening-Colonoscopy 1950 Depression Screening 1950 Fall Risk Assessment 1950 Hepatitis C Screening 1950 Hepatitis B Screening 11/17/1967 Well Visit 65+ 2014 Zoster Vaccine (2 of 3) 06/04/2016 04/09/2016 Influenza Vaccine (#1) 2025 05/23/2023, 2019 DTaP/Tdap/Td Vaccine (2 - Td or Tdap) 11/17/2030 11/17/2020 Pneumococcal vaccine 65+ Completed 05/23/2018, 12/07 Abdominal Aortic Aneurysm (A AA) Screen Completed 12/10/2021, 06/02/2021, 02/05/2021, Additional history exists Procedures Procedure Name Priority Date/Time Associated Diagnosis Comments PULMONARY FUNCTION TEST (PFT) Routine 05/01/2025 2:17 PM CDT Pulmonary emphysema, unspecified emphysema type (HCC) CT CHEST WO CONTRAST Schedule Routine, Read Routine (OP Routine) 05/01/2025 12:59 PM CDT Other nonspecific abnormal finding of lung field US ABDOMINAL AORTA Routine 06/23/2020 8:11 AM MAINFRAME SYSTEMS ENGINEER Palpitations from Last 3 Months or Most Recently Relevant to Health Maintenance Results * Pulmonary Function Test - (05/01/2025 2:17 PM CDT) Anatomical Region Laterality Modality PFT 05/01/2025 1:38 PM CDT Impressions 05/02/2025 12:37 PM CDT 1. Mild obstructive ventilatory limitation 2. Mild gas trapping 3. Moderate diffusion impairment Electronically signed by Salazar Luna MD Pulmonary & Critical Care Narrative 05/02/2025 12:37 PM CDT PULMONARY FUNCTION TESTS Braden Liu 74 y.o. 05/02/2025 INTERPRETATION Please see technologist's comments mentioned in attached results report. SPIROMETRY: Pre bronchodilator FEV1 is 67 % predicted, FVC is 93 % predicted, FEV1/FVC is 0.55 Bronchodilator response: No Inspection of the patient's flow-volume loops shows: Scooping of the expiratory limb. Notching of the inspiratory and expiratory limbs, otherwise normal configuration of the inspiratory and expiratory limbs. LUNG VOLUMES: Lung volumes by body plethysmography: TLC is 89 % predicted, RV is 109 % predicted DLCO: Unadjusted for hemoglobin and carboxyhemoglobin DLCO is 55 % predicted Sergio Camargo MD PFT ORDERABLES Final Result * CT Chest WO Contrast (05/01/2025 12:59 PM CDT) Anatomical Region Laterality Modality Body N/A Computed Tomogra phy 05/03/2025 9:50 AM CDT Addenda Addendum by Chang Adams MD on 05/04/2025 10:12 AM CDT ADDENDUM: This addendum report supersedes the original report dated 05/03/[address] from 04/26/2024 is now available. The left lung nodules are stable since the prior exam. Given the stability I recommend a follow-up chest CT in 12 months instead of a PET-CT. END OF ADDENDUM REPORT THIS IS AN ELECTRONICALLY VERIFIED FINAL REPORT 05/04/2025 10:12 AM Addendum Electronically signed by Chang Adams M.D. BS: BS Report ID: [id number] Reading Location: [id number] [facility] 05/03/2025 10:02 AM CDT EXAM DESCRIPTION: CT CHEST WO CONTRAST REASON FOR STUDY: other nonspecific abnormal finding of lung field Follow up, no current complaints, smoker TECHNIQUE: CT scan of the chest performed without intravenous contrast using helical scanning technique. Reconstructed coronal and sagittal MPR images reviewed. All images stored on PACS. Automated exposure control was used as a dose optimization technique for this examination. COMPARISON: None FINDINGS: The sensitivity for detection of solid visceral lesions is diminished without the use of intravenous contrast. LUNGS: Bzum-cu-lvsepyiz emphysematous changes most pronounced in the lung apices. There is bronchiectasis with bronchial wall thickening most pronounced centrally and in the right upper lobe. There is subsegmental atelectasis in the right lung base. A 1 cm spiculated nodule is noted in the left lung base. There is a 5.5 mm oblong pleural-based left upper lobe nodule (image 42). There is some pleural thickening with associated calcification in the left lower lung. This suggests prior asbestos exposure. PLEURA: No effusion. No pneumothorax. MEDIASTINUM/JULIO CÉSAR: There is an enlarged right paratracheal lymph node measuring 1.5 cm in shortest diameter. A subcarinal lymph node measuring 9 mm in shortest diameter is also seen. HEART: Heart size is normal with no pericardial effusion. CORONARY ARTERY CALCIFICATION: Present VASCULATURE: No thoracic aortic aneurysm. AXILLA: No adenopathy. CHEST WALL: No masses. No subcutaneous air. HARDWARE/LINES/TUBES: None. UPPER ABDOMEN: There is an indeterminate attenuation right adrenal nodule measuring 2.2 cm in greatest axial diameter. MUSCULOSKELETAL: Multilevel thoracic spondylosis is seen. There is a right curvature of the thoracic spine. OTHER: No other significant abnormality. IMPRESSION: 1. Spiculated left lower lobe nodule and enlarged mediastinal lymph nodes. PET-CT is recommended if not yet performed. 2. Pleural-based left upper lobe nodule and partially calcified pleural thickening on the left. Has the patient had prior asbestos exposure?. 3. Emphysematous change. 4. Indeterminate attenuation right adrenal nodule. 5. thoracic scoliosis. THIS IS AN ELECTRONICALLY VERIFIED FINAL REPORT 05/03/2025 10:02 AM - Electronically signed by Chang Adams M.D. BS: KARISHMA Report ID: [id number] Reading Location: [place] [id number] Procedure Note Chang Adams MD - 05/03/2025 EXAM DESCRIPTION: CT CHEST WO CONTRAST REASON FOR STUDY: other nonspecific abnormal finding of lung field Follow up, no current complaints, smoker TECHNIQUE: CT scan of the chest performed without intravenous contrastusing helical scanning technique. Reconstructed coronal and sagittal MPR images reviewed. All images stored on PACS. Automated exposure control was usedas a dose optimization technique for this examination. COMPARISON: None FINDINGS: The sensitivity for detection of solid visceral lesions is diminishedwithout the use of intravenous contrast. LUNGS: Mgol-kk-sunzlijg emphysematous changes most pronounced in thelung apices. There is bronchiectasis with bronchial wall thickening most pronounced centrally and in the right upper lobe. There is subsegmental atelectasis in the right lung base. A 1 cm spiculated nodule is noted inthe left lung base. There is a 5.5 mm oblong pleural-based left upper lobenodule (image 42). There is some pleural thickening with associatedcalcification in the left lower lung. This suggests prior asbestos exposure. PLEURA: No effusion. No pneumothorax. MEDIASTINUM/JULIO CÉSAR: There is an enlarged right paratracheal lymph node measuring 1.5 cm in shortest diameter. A subcarinal lymph node measuring9 mm in shortest diameter is also seen. HEART: Heart size is normal with no pericardial effusion. CORONARY ARTERY CALCIFICATION: Present VASCULATURE: No thoracic aortic aneurysm. AXILLA: No adenopathy. CHEST WALL: No masses. No subcutaneous air. HARDWARE/LINES/TUBES: None. UPPER ABDOMEN: There is an indeterminate attenuation right adrenalnodule measuring 2.2 cm in greatest axial diameter. MUSCULOSKELETAL: Multilevel thoracic spondylosis is seen. There is aright curvature of the thoracic spine. OTHER: No other significant abnormality. IMPRESSION: 1. Spiculated left lower lobe nodule and enlarged mediastinal lymphnodes. PET-CT is recommended if not yet performed. 2. Pleural-based left upper lobe nodule and partially calcified pleural thickening on the left. Has the patient had prior asbestos exposure?. 3. Emphysematous change. 4. Indeterminate attenuation right adrenal nodule. 5. thoracic scoliosis. THIS IS AN ELECTRONICALLY VERIFIED FINAL REPORT 05/03/2025 10:02 AM - Electronically signed by Chang Adams M.D. BS: KARISHMA Report ID: [id number] Reading Location: [id number] Sergio Camargo MD [facility] [place] CT PROCEDURES Edited Result - Final * US Abdominal Aorta (06/23/2020 8:11 AM MAINFRAME SYSTEMS ENGINEER) Anatomical Region Laterality Modality Abdomen N/A Ultrasound 06/23/2020 8:29 AM MAINFRAME SYSTEMS ENGINEER Impressions 06/23/2020 8:30 AM MAINFRAME SYSTEMS ENGINEER There is no abnormal aortic aneurysm. Electronically signed by: Shira Ng M.D. Narrative 06/23/2020 8:30 AM MAINFRAME SYSTEMS ENGINEER EXAMINATION: US ABDOMINAL AORTA HISTORY: The patient is a 69-year-old male who is a current smoker is having abdominal aortic aneurysm monitoring. TECHNIQUE: Transverse and sagittal images were obtained through the abdominal aorta. FINDINGS: The proximal abdominal aorta measures 2.0 x 3.0 cm, the mid measures 2.2 x 2.0 cm and the distal is 1.9 x 1.9 cm in diameter. The right common iliac artery measures 1.2 x 1.3 cm and the left common iliac artery measures 1.2 x 1.2 cm in diameter. Procedure Note Shira Ng MD - 06/23/2020 EXAMINATION: US ABDOMINAL AORTA HISTORY: The patient is a 69-year-old male who is a current smoker is having abdominal aortic aneurysm monitoring. TECHNIQUE: Transverse and sagittal images were obtained through the abdominal aorta. FINDINGS: The proximal abdominal aorta measures 2.0 x 3.0 cm, the mid measures 2.2 x 2.0 cm and the distal is 1.9 x 1.9 cm in diameter. The right common iliac artery measures 1.2 x 1.3 cm and the left common iliac artery measures 1.2 x 1.2 cm in diameter. IMPRESSION: There is no abnormal aortic aneurysm. Electronically signed by: Shira Ng M.D. Katie Batista MD [facility] PROCEDURES Final Res ult from Last 3 Months or Most Recently Relevant to Health Maintenance Insurance [facility] MEDICARE ADVANTAGE [facility] MEDIC[facility] ADV[facility]AGE Care Teams Facilities Maintenance Worker Relationship Specialty Start Date End Date Fahad Hays MD [address] [facility] [place] [address] PCP - General Family Medicine 01/13/21
--- OUTSIDE RECORDS SUMMARY | 2025-07-23 15:58 | XMS_ITS | Clinical Summary ---
Author Organization [facility] Address [address] [place] [address] Care Team Providers Care Change Management Analyst Name Role Phone Unavailable Primary Care Provider Unavailabl e Source Comments [facility],non-owned Affiliates and Associated Physician Practices is amultiple site organization consisting of ambulatory clinics and hospital sitesin [place], [place], [place] and [place]. This disclosure is being madepursuant to the Care Everywhere program and may not contain all information available regarding this patient. Last updated 18.[facility] Social History Tobacco Use Types Packs/Day Years Used Date Smoking Tobacco: Never Assessed Sex and Gender Information Value Date Recorded Sex Assigned at Not on file Legal Sex Male 10:40 AM CDT Gender Identity Not on file Sexual Orientation Not on file Plan of Treatment Health Maintenance Due Date Last Done Comments COLOGUARD (AGES 45-75) - COL ON CA SCREENING 1950 COLON MONITORING 1950 COLONOSCOPY - COLON CA SCREENING 1949 CT COLONOGRAPHY - COLON CA SCREENING 1950 Colorectal Cancer Screening 1950 FIT - COLON CA SCREENING 1949 FLEX SIG - COLON CA SCREENING 1949 LIPID TESTING 1950 HEPATITIS C SCREENING 11/12/1967 DTAP/TDAP/TD VACCINES (1 - Tdap) 1968 PNEUMOCOCCAL VACCINE 50+ (1 of 1 - PCV) 11/17/1999 ZOSTER VACCINE (1 of 2) 11/17/1999 DEPRESSION SCREENING 08/08/2024 Respiratory Syncytial Virus (RSV) Vaccine Pt: or over 60 yrs (1 - 1-dose 75+ series) 2024 COVID-19 VACCINE (3 - 2024-2 6 season) 2025 03/08/2022, 09/15/2020 INFLUENZA VACCINE (#1) 2025 HEPATITIS B VACCINE Aged Out No longe r eligible based on patient's age to complete this topic HIB VACCINE Aged Out No longer eligi ble based on patient's age to complete this topic HPV VACCINE Aged Out No longer eligi ble based on patient's age to complete this topic MENINGOCOCCAL (Group B) VACCINE SHARED DECISION-MAKING Aged Out No longer eligible based on patient's age to complete this topic MENINGOCOCCAL GROUPS A/C/Y/W VACCINE Aged Out No longer eligible b ased on patient's age to complete this topic
== END 2025-07-23 13:49 | disposition home or self-care (01) ==
PROVIDERS: PCP Family Medicine; Visit Provider Internal Medicine Pulmonary Disease
DX: E27.8 Other specified disorders of adrenal gland (principal); R91.1 Solitary pulmonary nodule
CPT/HCPCS: 78815; A9552